=== PATIENT | male | born 1940 | race Caucasian/White ===

== ENCOUNTER 2017-09-16 17:30 | Observation (INO) | payer MEDICARE ==
--- NOTE | 2017-09-16 17:54 | ED ---
General Adult HPI - General Chief complaint: Chest Pain Stated complaint: chest pain, has Heart Hx Time Seen by Provider: 09/16/17 17:42 Source: patient, family, RN notes reviewed, old records reviewed Mode of arrival: ambulatory Limitations: no limitations - History of Present Illness Initial comments: 77-year-old male presents for evaluation of chest pain. Patient has had 5 hours of anterior sternal chest pain. Patient can point with one finger to the location of the pain. Sharp in nature. Comes every few minutes last only for seconds. Not associated with shortness of breath, no nausea and no diaphoresis. Patient denies exertional chest pain over the past weeks to months. Denies fever or chills. Denies cough or shortness of breath. - Related Data Home Medications Medication Instructions Recorded Confirmed Probenecid/Colchicine 1 tab PO BID 11/14/14 09/16/17 [Probenecid-Colchicine Tabs] metFORMIN HCL 1,000 mg PO BID 11/14/14 09/16/17 Ascorbic Acid [Vitamin C] 500 mg PO DAILY 12/02/15 09/16/17 Aspirin 81 mg PO DAILY 12/02/15 09/16/17 Atenolol [Tenormin] 50 mg PO QAM 12/02/15 09/16/17 Cholecalciferol [Vitamin D3] 1,000 unit PO DAILY 12/02/15 09/16/17 Insulin Detemir [Levemir] 20 unit SQ QAM 12/02/15 09/16/17 Methylsulfonylmethane [MSM] 1,500 mg PO BID 12/02/15 09/16/17 Multivitamins, Thera [Multivitamin] 1 tab PO DAILY 12/02/15 09/16/17 Vitamin E 400 unit PO DAILY 12/02/15 09/16/17 glipiZIDE [Glucotrol] 5 mg PO BID 12/02/15 09/16/17 Previous Rx's Medication Instructions Recorded HYDROcodone/APAP 7.5-325MG [[place] 1 tab PO Q6H PRN #30 tab 11/25/14 7.5-325] Lisinopril [Zestril] 10 mg PO DAILY tab 11/25/14 Pravastatin Sodium [Pravachol] 40 mg PO HS tab 11/25/14 Allergies Allergy/AdvReac Type Severity Reaction Status Date / Time No Known Allergies Allergy Verified 09/16/17 18:48 Review of Systems ROS Statement: Those systems with pertinent positive or pertinent negative responses have been documented in the HPI. ROS Other: All systems not noted in ROS Statement are negative. Past Medical History Past Medical History: Coronary Artery Disease (CAD), Cancer, Diabetes Mellitus, Hyperlipidemia, Hypertension, Osteoarthritis (OA) Additional Past Medical History / Comment(s): gout, hx skin cancer, History of Any Multi-Drug Resistant Organisms: None Reported Past Surgical History: Coronary Bypass/CABG, Heart Catheterization, Orthopedic Surgery Additional Past Surgical History / Comment(s): CABG 2014, ORIF left ankle, hemorrhoidectomy, [place] cataracts, nasal surgery, left carpal tunnel Past Anesthesia/Blood Transfusion Reactions: No Reported Reaction Past Psychological History: No Psychological Hx Reported Smoking Status: Never smoker Past Alcohol Use History: Occasional Past Drug Use History: None Reported - Past Family History Father Family Medical History: Coronary Artery Disease (CAD) Additional Family Medical History / Comment(s): PACEMAKER INSERTION. Mother Family Medical History: No Reported History Additional Family Medical History / Comment(s): AORTIC VALVE REPLACED. Brother(s) Family Medical History: Coronary Artery Disease (CAD) Sister(s) Family Medical History: No Reported History Daughter(s) Family Medical History: No Reported History General Exam Limitations: no limitations General appearance: alert, in no apparent distress Head exam: Present: atraumatic, normocephalic Eye exam: Present: normal appearance, PERRL ENT exam: Present: normal exam Neck exam: Present: normal inspection. Absent: tenderness, meningismus Respiratory exam: Present: normal lung sounds bilaterally. Absent: respiratory distress, wheezes, chest wall tenderness Cardiovascular Exam: Present: regular rate, normal rhythm, systolic murmur GI/Abdominal exam: Present: soft. Absent: distended, tenderness Extremities exam: Present: normal inspection, full ROM, normal capillary refill Back exam: Present: normal inspection. Absent: full ROM Neurological exam: Present: alert, oriented X3, CN II-XII intact. Absent: motor sensory deficit Psychiatric exam: Present: normal affect, normal mood Skin exam: Present: warm, dry, intact. Absent: cyanosis, diaphoretic Course Vital Signs 09/16/17 09/16/17 09/16/17 17:33 18:55 19:56 Temperature 97.6 F Pulse Rate 40 L 61 64 Respiratory 22 16 18 Rate Blood Pressure 138/69 167/81 169/80 O2 Sat by Pulse 99 97 97 Oximetry EKG Findings - EKG Comments: EKG Findings:: EKG shows sinus rhythm with sinus arrhythmia and first-degree AV block there is left anterior fascicular block rate of 66, TX interval 248, QRS duration 92, QTC 439 ST segment elevation or depression Medical Decision Making - Medical Decision Making 77-year-old male presents with atypical chest pain. Patient does have history of CAD status post CABG. EKG is negative for signs of acute ischemia. Chest x- ray shows chronic elevation of the right hemidiaphragm. Laboratory studies White blood cell count 5.1 which is normal, hemoglobin stable 14.1, creatinine 1.34 troponin is negative. Patient will be admitted for serial cardiac enzymes and cardiology consult. - Lab Data Result diagrams: 09/16/17 18:05 09/16/17 18:05 Lab Results 09/16/17 09/16/17 09/16/17 Range/Units 18:05 18:05 18:05 WBC 5.1 (3.8-10.6) k/uL RBC 4.18 L (4.30-5.90) m/uL Hgb 13.1 (13.0-17.5) gm/dL Hct 38.0 L (39.0-53.0) % MCV 90.7 (80.0-100.0) fL MCH 31.4 (25.0-35.0) pg MCHC 34.6 (31.0-37.0) g/dL RDW 13.8 (11.5-15.5) % Plt Count 170 (150-450) k/uL Neutrophils % 49 % Lymphocytes % 43 % Monocytes % 5 % Eosinophils % 1 % Basophils % 1 % Neutrophils # 2.5 (1.3-7.7) k/uL Lymphocytes # 2.2 (1.0-4.8) k/uL Monocytes # 0.2 (0-1.0) k/uL Eosinophils # 0.0 (0-0.7) k/uL Basophils # 0.0 (0-0.2) k/uL PT (9.0-12.0) sec INR (<1.2) APTT (22.0-30.0) sec Sodium 141 (137-145) mmol/L Potassium 4.1 (3.5-5.1) mmol/L Chloride 104 (98-107) mmol/L Carbon Dioxide 26 (22-30) mmol/L Anion Gap 11 mmol/L BUN 17 (9-20) mg/dL Creatinine 1.34 H (0.66-1.25) mg/dL Est GFR (MDRD) Af Amer >60 (>60 ml/min/1.73 sqM) Est GFR (MDRD) Non-Af 52 (>60 ml/min/1.73 sqM) Glucose 94 (74-99) mg/dL Calcium 10.0 (8.4-10.2) mg/dL Magnesium 1.4 L (1.6-2.3) mg/dL Total Bilirubin 0.6 (0.2-1.3) mg/dL AST 27 (17-59) U/L ALT 34 (21-72) U/L Alkaline Phosphatase 55 (38-126) U/L Total Creatine Kinase 65 (55-170) U/L CK-MB (CK-2) 2.0 (0.0-2.4) ng/mL CK-MB (CK-2) Rel Index 3.1 Troponin I 0.012 (0.000-0.034) ng/mL NT-Pro-B Natriuret Pep pg/mL Total Protein 6.6 (6.3-8.2) g/dL Albumin 4.0 (3.5-5.0) g/dL Lipase 138 (23-300) U/L 09/16/17 09/16/17 Range/Units 18:05 18:05 WBC (3.8-10.6) k/uL RBC (4.30-5.90) m/uL Hgb (13.0-17.5) gm/dL Hct (39.0-53.0) % MCV (80.0-100.0) fL MCH (25.0-35.0) pg MCHC (31.0-37.0) g/dL RDW (11.5-15.5) % Plt Count (150-450) k/uL Neutrophils % % Lymphocytes % % Monocytes % % Eosinophils % % Basophils % % Neutrophils # (1.3-7.7) k/uL Lymphocytes # (1.0-4.8) k/uL Monocytes # (0-1.0) k/uL Eosinophils # (0-0.7) k/uL Basophils # (0-0.2) k/uL PT 11.5 (9.0-12.0) sec INR 1.2 H (<1.2) APTT 22.5 (22.0-30.0) sec Sodium (137-145) mmol/L Potassium (3.5-5.1) mmol/L Chloride (98-107) mmol/L Carbon Dioxide (22-30) mmol/L Anion Gap mmol/L BUN (9-20) mg/dL Creatinine (0.66-1.25) mg/dL Est GFR (MDRD) Af Amer (>60 ml/min/1.73 sqM) Est GFR (MDRD) Non-Af (>60 ml/min/1.73 sqM) Glucose (74-99) mg/dL Calcium (8.4-10.2) mg/dL Magnesium (1.6-2.3) mg/dL Total Bilirubin (0.2-1.3) mg/dL AST (17-59) U/L ALT (21-72) U/L Alkaline Phosphatase (38-126) U/L Total Creatine Kinase (55-170) U/L CK-MB (CK-2) (0.0-2.4) ng/mL CK-MB (CK-2) Rel Index Troponin I (0.000-0.034) ng/mL NT-Pro-B Natriuret Pep 708 pg/mL Total Protein (6.3-8.2) g/dL Albumin (3.5-5.0) g/dL Lipase (23-300) U/L Disposition Clinical Impression: Chest pain Disposition: ADMITTED IP TO THIS [facility] Condition: Stable Referrals: Morgan Saez MD [Primary Care Provider] - 1-2 days Decision to Admit Reason: Admit from EC Decision Date: 09/16/17 Decision Time: 20:23
[2017-09-16 18:17] LABS: Basophils % (A) 1 %; Eosinophils % (A) 1 %; HGB 13.1 gm/dL (13.0-17.5); Lymphocytes # (A) 2.2 k/uL (1.0-4.8); Lymphocytes % (A) 43 %; MCH 31.4 pg (25.0-35.0); MCHC 34.6 g/dL (31.0-37.0); MCV 90.7 fL (80.0-100.0); Mean Platelet Volume 7.4; Monocytes # (A) 0.2 k/uL (0-1.0); Monocytes % (A) 5 %; Neutrophils # (A) 2.5 k/uL (1.3-7.7); Neutrophils % (A) 49 %; Platelet Count 170 k/uL (150-450); RBC 4.18 m/uL (4.30-5.90); RDW 13.8 % (11.5-15.5); WBC 5.1 k/uL (3.8-10.6)
--- NOTE | 2017-09-16 18:22 | XR ---
EXAMINATION TYPE: XR chest 2V DATE OF EXAM: 09/16/2017 COMPARISON: 06/30/2017 HISTORY: Chest pain TECHNIQUE: Frontal and lateral views of the chest are obtained. FINDINGS: There is elevated right diaphragm. There is no heart failure. There are sternal wires. The re are chest leads. There is some linear density at the left lung base. There is spurring in the thor acic spine. 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 Mild subseg mental atelectasis and scarring at the lung bases. No heart failure. No change compared to old exam.
[2017-09-16 18:25] LABS: INR 1.2 (<1.2); Partial Thromboplastin Time 22.5 sec (22.0-30.0); Prothrombin Time 11.5 sec (9.0-12.0)
[2017-09-16 18:29] LABS: ALT 34 U/L (21-72); AST 27 U/L (17-59); Alkaline Phosphatase 55 U/L (38-126); Anion Gap 11 mmol/L; Blood Urea Nitrogen 17 mg/dL (9-20); Carbon Dioxide 26 mmol/L (22-30); Chloride 104 mmol/L (98-107); Glucose 94 mg/dL (74-99); Lipase 138 U/L (23-300); Potassium 4.1 mmol/L (3.5-5.1); Sodium 141 mmol/L (137-145); Total Bilirubin 0.6 mg/dL (0.2-1.3); Total Protein 6.6 g/dL (6.3-8.2)
[2017-09-16 18:51] LABS: Troponin I 0.012 ng/mL (0.000-0.034)
[2017-09-16] MEDS ORDERED: MAGNESIUM SULFATE-D5W PMX 1 GM in DEXTROSE/WATER 1 100ML.BAG IVPB ONE (19:20)
[2017-09-16] MEDS ORDERED: ASPIRIN 325 MG TAB PO STA (19:21)
[2017-09-16] MEDS ORDERED: NALOXONE 0.4 MG/ML 1 ML VIAL IV PRN (20:17)
[2017-09-16] MEDS ORDERED: HYDROcodone/APAP 5-325MG 1 EACH TAB PO PRN (20:17)
[2017-09-16] MEDS ORDERED: ACETAMINOPHEN TAB 325 MG TAB PO PRN (20:17)
[2017-09-16] MEDS ORDERED: PRAVASTATIN SODIUM 40 MG TAB PO SCH (21:00)
[2017-09-16 23:38] VITALS: RESP 16
[2017-09-17 01:14] LABS: Creatine Kinase 54 U/L (55-170)
[2017-09-17 01:27] LABS: Creatine Kinase MB 1.7 ng/mL (0.0-2.4); Troponin I <0.012 ng/mL (0.000-0.034)
[2017-09-17 06:51] LABS: Basophils % (A) 1 %; Eosinophils % (A) 1 %; HCT 37.9 % (39.0-53.0); HGB 12.7 gm/dL (13.0-17.5); Lymphocytes # (A) 1.8 k/uL (1.0-4.8); Lymphocytes % (A) 48 %; MCH 30.9 pg (25.0-35.0); MCHC 33.5 g/dL (31.0-37.0); MCV 92.2 fL (80.0-100.0); Mean Platelet Volume 7.3; Monocytes # (A) 0.2 k/uL (0-1.0); Monocytes % (A) 5 %; Neutrophils # (A) 1.7 k/uL (1.3-7.7); Neutrophils % (A) 44 %; Platelet Count 150 k/uL (150-450); RBC 4.11 m/uL (4.30-5.90); RDW 13.8 % (11.5-15.5); WBC 3.8 k/uL (3.8-10.6)
[2017-09-17 07:05] LABS: ALT 35 U/L (21-72); AST 22 U/L (17-59); Albumin 3.6 g/dL (3.5-5.0); Alkaline Phosphatase 55 U/L (38-126); Anion Gap 9 mmol/L; Blood Urea Nitrogen 16 mg/dL (9-20); Carbon Dioxide 31 mmol/L (22-30); Chloride 103 mmol/L (98-107); Creatine Kinase 49 U/L (55-170); Glucose 149 mg/dL (74-99); Potassium 4.5 mmol/L (3.5-5.1); Sodium 143 mmol/L (137-145); Total Bilirubin 0.6 mg/dL (0.2-1.3); Total Protein 6.1 g/dL (6.3-8.2)
[2017-09-17 07:17] LABS: Creatine Kinase MB 1.7 ng/mL (0.0-2.4); Troponin I <0.012 ng/mL (0.000-0.034)
[2017-09-17 08:38] VITALS: BP 190/86
[2017-09-17] MEDS ORDERED: LISINOPRIL 10 MG TAB PO SCH (09:00)
[2017-09-17] MEDS ORDERED: ATENOLOL 50 MG TAB PO SCH (09:00)
[2017-09-17] MEDS ORDERED: ASPIRIN 81 MG PO SCH (09:00)
[2017-09-17] MEDS ORDERED: INSULIN DETEMIR 100 UNIT/ML 10 ML VIAL SQ SCH (09:00)
[2017-09-17] MEDS ORDERED: LISINOPRIL 20 MG TAB PO SCH ×2 (10:36→11:45)
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
--- NOTE | 2017-09-17 10:58 | CONS ---
CONSULTATION Reynaldo Jo is a 77-year-old, male patient of Dr. Martinez. He saw Dr. Mark in early 2015, has not seen him since. He came in complaining of discomfort in the chest. This is a very localized pain at the right costochondral junction. No tenderness there and did not respond taking an aspirin or TUMS. He has no more pain now. There was no radiation of this pain. The pain is fairly atypical for angina. PAST HISTORY: Coronary artery disease, coronary artery bypass grafting in 2014. He also has a history of diabetes, history of gout and hypertension. ALLERGIES: No known drug allergies. Medication list was reviewed. It is documented in the chart. He is on atenolol 50 mg daily and his 12-lead ECG shows sinus bradycardia with a mildly prolonged WI interval. PAST SURGERIES: Coronary artery bypass graft in 2014, ankle repaired, hemorrhoidectomy, bilateral cataract surgery, carpal tunnel surgery. SOCIAL HISTORY: He is a never smoker. REVIEW OF SYSTEMS: No fever, chills, or rigors. No cough or expectoration. No nausea, vomiting, diarrhea, hematuria, dysuria, no strokes, seizures, no skin lesions or musculoskeletal complaints. PHYSICAL EXAMINATION: His blood pressure is 190/86 mmHg, pulse rate in the 90s. Head and neck examination is normal. He is afebrile. Heart sounds S1-S2 are normal. No murmurs or gallops. No rubs. Extremities are warm. No edema. IMPRESSION: 1. Atypical chest discomfort with normal cardiac enzymes x3. 2. Coronary artery disease. 3. Coronary artery bypass grafting. 4. Chronic kidney disease stage 3. 5. Uncontrolled hypertension. SUGGEST: Increase lisinopril to 20 mg p.o. daily and reduce atenolol to 25 mg p.o. daily. Maximize antihypertensive therapy. A 2D echo and Doppler study today and outpatient stress testing and follow up with Dr. Mark a week after discharge. MMODL / IJN: [id number] /
[2017-09-17] MEDS ORDERED: ATENOLOL 25 MG TAB PO SCH (11:00)
[2017-09-17 13:01] VITALS: PULSE 66; TEMP 97.5
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
--- NOTE | 2017-09-19 14:33 | ECHOF ---
Referral Reason:cad, cp , htn MEASUREMENTS -------- HEIGHT: 172.7 cm WEIGHT: 88.0 kg BP: 190/86 IVSd: 1.4 cm (0.6 - 1.1) LVIDd: 5.0 cm (3.9 - 5.3) LVPWd: 1.4 cm (0.6 - 1.1) LAESV Index (A-L): 43.14 ml/m Ao Diam: 3.5 cm (2.0 - 3.7) LA Diam: 4.2 cm (2.7 - 3.8) AV Cusp: 2.0 cm (1.5 - 2.6) MV E Nathaniel: 0.69 m/s MV DecT: 191 ms MV A Nathaniel: 0.63 m/s MV E/A Ratio: 1.10 RAP: 5.00 mmHg RVSP: 7.92 mmHg FINDINGS -------- Resting bradycardia (HR<60bpm). This was a technically difficult study with suboptimal views. The left ventricular size is normal. There is moderate concentric left ventricular hypertrophy. O verall left ventricular systolic function is normal with, an EF between 55 - 60 %. The RV was not well visualized. LA is severely dilated >40 ml/m2 The right atrium is normal in size. 3 ml of Lumason was utilized for enhancement of images. Aortic valve is trileaflet and is mildly thickened. There is no evidence of aortic regurgitation. There is no evidence of aortic stenosis. The mitral valve leaflets are mildly thickened. There is trace to mild mitral regurgitation. Trace tricuspid regurgitation present. Right ventricular systolic pressure is normal at < 35 mmHg. There is no evidence of pulmonary hypertension. Trace/mild (physiologic) pulmonic regurgitation. The aortic root size is normal. IVC Not well visulized. The pericardium is normal. There is no pericardial effusion. CONCLUSIONS -------- 1. Resting bradycardia (HR<60bpm). 2. This was a technically difficult study with suboptimal views. 3. The left ventricular size is normal. 4. There is moderate concentric left ventricular hypertrophy. 5. Overall left ventricular systolic function is normal with, an EF between 55 - 60 %. 6. The RV was not well visualized. 7. LA is severely dilated >40 ml/m2 8. 3 ml of Lumason was utilized for enhancement of images. 9. Aortic valve is trileaflet and is mildly thickened. 10. The mitral valve leaflets are mildly thickened. 11. There is trace to mild mitral regurgitation. 12. Trace tricuspid regurgitation present. 13. Right ventricular systolic pressure is normal at < 35 mmHg. 14. There is no evidence of pulmonary hypertension. 15. Trace/mild (physiologic) pulmonic regurgitation. 16. The aortic root size is normal. 17. IVC Not well visulized. 18. There is no pericardial effusion. MORNING SHOW [employer] PRODUCER: Jason Montalvo RDCS
== END 2017-09-17 15:41 | disposition home or self-care (01) ==
LOC: EC 17:30 → 3OBS 20:21
PROVIDERS: ADMIT Internal Medicine; ATTEND Internal Medicine
DX: R07.2 Precordial pain (principal); I25.5 Ischemic cardiomyopathy; I13.10 Hypertensive heart and chronic kidney disease without heart failure, with stage 1 through stage 4 chronic kidney disease, or unspecified chronic kidney disease; N18.3 Chronic kidney disease, stage 3 (moderate); E11.22 Type 2 diabetes mellitus with diabetic chronic kidney disease; E11.65 Type 2 diabetes mellitus with hyperglycemia; I25.10 Atherosclerotic heart disease of native coronary artery without angina pectoris; I44.0 Atrioventricular block, first degree; R00.1 Bradycardia, unspecified; T44.7X5A Adverse effect of beta-adrenoreceptor antagonists, initial encounter; G56.02 Carpal tunnel syndrome, left upper limb; Z95.1 Presence of aortocoronary bypass graft; M10.9 Gout, unspecified; E78.5 Hyperlipidemia, unspecified; M19.90 Unspecified osteoarthritis, unspecified site; Z79.82 Long term (current) use of aspirin; Z79.4 Long term (current) use of insulin; Z85.828 Personal history of other malignant neoplasm of skin; Z82.49 Family history of ischemic heart disease and other diseases of the circulatory system
CPT/HCPCS: 96365 ×2; 99285 ×2; 36415; 93005; 83880; 80053 ×2; 82550 ×2; 82553 ×2; 83690; 83735; 84484 ×2; 85025 ×2; 85610; 85730; 71046; G0378 ×2; C8929; J3475; Q9950; 93306

== ENCOUNTER → 2017-09-28 | Outpatient (CLI) | payer MEDICARE ==
--- NOTE | 2017-09-28 11:40 | EST ---
EXERCISE STRESS DATE OF SERVICE: 09/28/2017 AGE: 77 SEX: M HT: 68" WT: 194 PROTOCOL: Eliezer Cardiolite Stress Test STAGE: I DURATION OF EXERCISE: 4:00 HEART RATE REST: 70 BLOOD PRESSURE REST: 139/73 MAXIMUM HEART RATE ACHIEVED: 132 MAXIMUM BLOOD PRESSURE: 235/111 85% MPHR: 122 100% MPHR: 143 METS: 5.4 INDICATIONS: Chest pain. CLINICAL INFORMATION: STRESS DATA: Pretesting physical examination showed a heart rate of 70, pressure is 129/73 mmHg. Baseline EKG showed sinus rhythm. The patient exercised on the treadmill according to Eliezer protocol for a total of 4 minutes and achieved 5.4 METS. Max heart rate was 132, which is about 92% of maximum predicted heart rate. Maximum blood pressure was 235/111 mmHg. Clinically, the patient did not have any chest pain, he did have some shortness of breath. The EKG did not show any significant ST or T-wave abnormalities, but the patient developed frequent premature ventricular contractions. CONCLUSION: 1. Average exercise capacity. 2. Frequent premature ventricular contractions in response to exercise. 3. Please follow up on the Cardiolite portion on a separate report from Radiology Department. MMODL / IJN: [id number] /
--- NOTE | 2017-09-28 13:03 | NM ---
EXAMINATION TYPE: NM stress cardiolite complete DATE OF EXAM: 09/28/2017 COMPARISON: NONE HISTORY: Angina pectoris TECHNIQUE: After the intravenous administration of 10.5 mCi Tc 99m Sestamibi - Rest images obtained 45 minutes post injection. The patient exercised using a ASHLEY protocol and 1 minute prior to peak exercise was injected with 27 mCi Tc 99m Sestamibi - Stress images obtained 10 minutes post injection . FINDINGS: Targeted heart rate was achieved during performance of the study. Review of stress and rest SPECT amaris ges demonstrates decreased pharmaceutical uptake along the inferolateral left ventricle on stress and rest images. There is some decreased uptake on stress images as compared to rest images along the an terolateral left ventricle towards the base of the heart. Gated analysis shows normal wall motion wi th an estimated left ventricular ejection fraction of 44 %. IMPRESSION: Findings compatible with prior infarct. Suspect some leo-infarct stress-induced left ventricular vickey cardial ischemia as described. Abnormal low myocardial ejection fraction, consider echocardiographic correlation. A Yellow message has been communicated to Morgan Saez MD via the [employer] system on 09/28/2017 1:00 PM, Message ID [phone].
== END | disposition home or self-care (01) ==
LOC: RADNMMAIN 07:57
PROVIDERS: ATTEND Family Medicine
DX: I49.3 Ventricular premature depolarization (principal); I20.9 Angina pectoris, unspecified
CPT/HCPCS: 93017; 78452; A9500

== ENCOUNTER 2017-11-04 09:08 | Day surgery (SDC) | payer MEDICARE ==
[2017-11-02 15:57] VITALS: BMI 29.3
[~2017-11-04 09:08] MED LIST: ALPRAZolam 0.25 MG TAB PO PRN; ALPRAZolam 0.5 MG TAB PO PRN; ASPIRIN 325 MG TAB PO STA; ATORVASTATIN 80 MG TAB PO STA; NITROGLYCERIN SL TABS 0.4 MG TAB SUBLINGUAL PRN; SODIUM CHLORIDE 0.9% 1,000 ML in EMPTY BAG 1 BAG IV ONE
[2017-11-04 09:55] VITALS: PULSE 58; RESP 20; TEMP 98.3
[2017-11-04 09:57] LABS: Glucose,Whole Blood 170 mg/dL (75-99)
[2017-11-04] MEDS ORDERED: fentaNYL (PF) 50 MCG/ML 2 ML AMP IV ONE (10:45)
[2017-11-04] MEDS ORDERED: MIDAZOLAM 2 MG/2 ML VIAL IV ONE (10:45)
[2017-11-04] MEDS ORDERED: LIDOCAINE 2% INJ 20 MG/ML SQ ONE (10:47)
[2017-11-04] MEDS ORDERED: SODIUM CHLORIDE 0.9% 1,000 ML IV ONE (10:56)
[2017-11-04 11:06] LABS: Basophils % (A) 1 %; Eosinophils % (A) 1 %; HCT 33.4 % (39.0-53.0); HGB 11.6 gm/dL (13.0-17.5); Lymphocytes # (A) 1.8 k/uL (1.0-4.8); Lymphocytes % (A) 33 %; MCH 30.9 pg (25.0-35.0); MCHC 34.6 g/dL (31.0-37.0); MCV 89.2 fL (80.0-100.0); Mean Platelet Volume 8.4; Monocytes # (A) 0.3 k/uL (0-1.0); Monocytes % (A) 5 %; Neutrophils # (A) 3.3 k/uL (1.3-7.7); Neutrophils % (A) 59 %; Platelet Count 155 k/uL (150-450); RBC 3.75 m/uL (4.30-5.90); RDW 13.8 % (11.5-15.5); WBC 5.6 k/uL (3.8-10.6)
[2017-11-04] MEDS ORDERED: IODIXANOL 320 MG/ML 100 ML INTRAARTER ONE (11:15)
[2017-11-04] MEDS ORDERED: RX INFO: IV CONTRAST WAS GIVEN 1 EACH MISC MISCELLANE PRN (11:19)
[2017-11-04] MEDS ORDERED: SODIUM CHLORIDE 0.9% 1,000 ML IV SCH (11:30)
[2017-11-04 11:33] LABS: Potassium 4.1 mmol/L (3.5-5.1)
--- NOTE | 2017-11-04 11:38 | P.PCN ---
Date of Procedure: 11/04/17 Preoperative Diagnosis: Stable angina and positive stress test Postoperative Diagnosis: Severe triple-vessel disease with total occlusion of the graft to the diagonal. Patent graft to the LAD distal circumflex and also PDA of the right Procedure(s) Performed: Left heart catheterization without left ventriculography Description of Procedure: HISTORY: This is a 77-year-old gentleman with history of ischemic or disease with a previous bypass surgery with the MACHUCA graft to the LAD, vein graft to the diagonal, vein graft to the OM branch and also vein graft to the RCA. Patient has been having anginal pains and a stress test showed evidence of reversible ischemia. Patient is advised to have cardiac catheterization for definitive diagnosis. CONSENT:I have discussed the risks, benefits and alternative therapies for the above-mentioned procedure and for both sedation/analgesia as well as necessary blood product administration, if indicated, as they pertain to this patient. The patient has indicated understanding and acceptance of the risks and procedures discussed. PROCEDURE: Patient was brought to the lab in a fasting state. Patient was given some IV sedation. The right groin is infiltrated with lidocaine and right femoral artery was entered using Seldinger technique. A 6-Romanian catheter was left in place and selective coronary arteriography was performed. Patient tolerated the procedure well. Manual compression was applied for hemostasis. No immediate complications were noted and patient was transferred to [facility] in a stable condition Conscious Sedation: Versed 1mg Fentanyl 50 g Duration 27minutes HEMODYNAMICS: The aortic pressure is about 130/70. Left ankle end-diastolic pressure is about 16-20. There was no gradient across the aortic valve SELECTIVE CORONARY ARTERIOGRAPHY: LEFT MAIN: This is a normal length with about 95% distal stenosis before bifurcation to LAD and circumflex. The lesion extends both into the LAD and circumflex. THE LEFT ANTERIOR DESCENDING CORONARY ARTERY: This is totally occluded after diagonal branch. The diagonal branches has long 60-70% stenosis proximally. THE LEFT CIRCUMFLEX AND IS CORONARY ARTERY: There is about 95% stenosis of the ostium. Total occluded after OM branch THE RIGHT CORONARY ARTERY: Totally occluded in the midportion after acute marginal branch and acute marginal branch has about 70-80 % ostial stenosis. THE MACHUCA GRAFT TO THE LAD: This is patent throat its length and also distal anastomosis. The LAD beyond the anastomosis appears to be free of occlusive disease. The vein graft to the RIGHT CORONARY ARTERY: This is patent throat its length and also at the proximal and distal anastomosis. The distal RCA is free of any significant occlusive disease. THE VEIN GRAFT TO THE CIRCUMFLEX: This is patent throat its length and also in the proximal and distal anastomotic sites. The distal circumflex is free of occlusive disease LEFT VENTRICULOGRAPHY:. Not performed FINAL IMPRESSION: Severe [place] coronary artery disease with significant lesion involving the left main at the bifurcation into LAD and circumflex. There is also significant lesion involving the proximal portion of the diagonal. The vein graft to diagonal is totally occluded. The MACHUCA graft to LAD, the vein graft to circumflex and the vein graft to the RCA is patent. The [place] LAD, circumflex and RCA and total occluded PLAN: Maximum medical therapy. Consideration to stenting of the left main and proximal diagonal to be constricted. Films were reviewed by Dr. Wang. Patient will have staged procedure PROGNOSIS: Guarded
[2017-11-04 16:12] VITALS: BP 120/60
[2017-11-04] MEDS ORDERED: INSULIN ASPART 100 UNIT/ML 1 ML 10 ML VIAL SQ ONE (16:55)
[2017-11-04 17:15] LABS: Glucose,Whole Blood 224 mg/dL (75-99)
== END 2017-11-04 18:21 | disposition home or self-care (01) ==
LOC: CATHCVL 09:08
PROVIDERS: ATTEND Internal Medicine Cardiovascular Disease
DX: I25.118 Atherosclerotic heart disease of native coronary artery with other forms of angina pectoris (principal); I25.708 Atherosclerosis of coronary artery bypass graft(s), unspecified, with other forms of angina pectoris; I25.82 Chronic total occlusion of coronary artery; R94.39 Abnormal result of other cardiovascular function study; I10 Essential (primary) hypertension; E78.00 Pure hypercholesterolemia, unspecified; E11.9 Type 2 diabetes mellitus without complications; Z95.1 Presence of aortocoronary bypass graft; Z82.49 Family history of ischemic heart disease and other diseases of the circulatory system; Z79.84 Long term (current) use of oral hypoglycemic drugs; Z79.82 Long term (current) use of aspirin; Z79.4 Long term (current) use of insulin; Z79.899 Other long term (current) drug therapy
CPT/HCPCS: 93459; 80048; 85025; C1894; C1769; J2001; J2250; Q9967; J3010

== ENCOUNTER → 2017-11-14 | Outpatient (CLI) | payer MEDICARE ==
[2017-11-14 13:22] LABS: HCT 37.1 % (39.0-53.0); HGB 12.6 gm/dL (13.0-17.5); MCH 30.8 pg (25.0-35.0); MCV 90.7 fL (80.0-100.0); Mean Platelet Volume 8.8; Platelet Count 146 k/uL (150-450); RBC 4.09 m/uL (4.30-5.90); RDW 13.8 % (11.5-15.5); WBC 5.8 k/uL (3.8-10.6)
[2017-11-14 13:47] LABS: Potassium 4.6 mmol/L (3.5-5.1)
== END | disposition home or self-care (01) ==
LOC: LABPAT 13:04
PROVIDERS: ATTEND Internal Medicine Interventional Cardiology
DX: Z01.812 Encounter for preprocedural laboratory examination (principal); I25.10 Atherosclerotic heart disease of native coronary artery without angina pectoris
CPT/HCPCS: 36415; 80051; 82565; 84520; 85027

== ENCOUNTER 2017-11-15 05:43 | Day surgery (SDC) | payer MEDICARE ==
[2017-11-10 14:25] VITALS: BMI 29.5
[2017-11-15] MEDS ORDERED: ALPRAZolam 0.25 MG TAB PO PRN (05:59)
[2017-11-15] MEDS ORDERED: ALPRAZolam 0.5 MG TAB PO PRN (05:59)
[2017-11-15] MEDS ORDERED: ASPIRIN 325 MG TAB PO STA (05:59)
[2017-11-15] MEDS ORDERED: SODIUM CHLORIDE 0.9% 1,000 ML in EMPTY BAG 1 BAG IV ONE (05:59)
[2017-11-15] MEDS ORDERED: NITROGLYCERIN SL TABS 0.4 MG TAB SUBLINGUAL PRN ×2 (05:59→08:53)
[2017-11-15] MEDS ORDERED: fentaNYL (PF) 50 MCG/ML 2 ML AMP ONE (07:18)
[2017-11-15] MEDS ORDERED: LIDOCAINE 2% INJ 20 MG/ML (20 ML MDV) ONE (07:18)
[2017-11-15] MEDS ORDERED: MIDAZOLAM 2 MG/2 ML VIAL ONE (07:18)
[2017-11-15] MEDS ORDERED: fentaNYL (PF) 50 MCG/ML 2 ML AMP IVP ONE (07:33)
[2017-11-15] MEDS ORDERED: LIDOCAINE 2% INJ 20 MG/ML SQ ONE (07:38)
[2017-11-15] MEDS ORDERED: CLOPIDOGREL 75 MG TAB ONE (07:41)
[2017-11-15] MEDS ORDERED: BIVALIRUDIN BOLUS 250 MG/50 ML IV ONE (07:42)
[2017-11-15] MEDS ORDERED: BIVALIRUDIN 250 MG in SODIUM CHLORIDE 0.9% 50 ML IV ONE (07:43)
[2017-11-15] MEDS ORDERED: CLOPIDOGREL 75 MG TAB PO ONE (07:45)
[2017-11-15] MEDS ORDERED: NITROGLYCERIN 1000MCG/10ML SYRINGE INTRACORON ONE (08:11)
[2017-11-15] MEDS ORDERED: IODIXANOL 320 MG/ML 100 ML INTRAARTER ONE ×2 (08:16→08:37)
[2017-11-15 08:49] LABS: Glucose,Whole Blood 148 mg/dL (75-99)
[2017-11-15] MEDS ORDERED: RX INFO: IV CONTRAST WAS GIVEN 1 EACH MISC MISCELLANE PRN (08:53)
[2017-11-15] MEDS ORDERED: ATROPINE SULFATE 0.1 MG/ML 10ML SYRINGE IV PRN (08:53)
[2017-11-15] MEDS ORDERED: MAG HYDROX/AL HYDROX/SIMETH 30 ML CUP PO PRN (08:53)
[2017-11-15] MEDS ORDERED: ZOLPIDEM 5 MG TAB PO PRN (08:53)
[2017-11-15] MEDS ORDERED: HYDROcodone/APAP 7.5-325MG 1 EACH TAB PO PRN (08:55)
[2017-11-15] MEDS ORDERED: METHYLSULFONYLMETHANE 1500 MG PO SCH (09:00)
[2017-11-15] MEDS ORDERED: COLCHICIN-PROBENECID 0.5-500MG 1 EACH TAB PO SCH (09:00)
[2017-11-15] MEDS ORDERED: SODIUM CHLORIDE 0.9% 1,000 ML IV SCH (09:00)
--- NOTE | 2017-11-15 09:50 | PTCA ---
PERCUTANEOUSTRANS CORORONARY ANGIOGRAPHY Mr. Jo is a 77-year-old male with known history of coronary artery disease status post coronary artery bypass grafting, who has been followed by Dr. Mark and recently presented with symptoms of chest discomfort and reversible anterolateral wall defect. Underwent cardiac catheterization, was found to have occluded saphenous vein graft to diagonal branch with severe disease in the left main, proximal LAD and diagonal branch. In view of that, recommendation was made regarding angioplasty and stenting. The procedure as well as the risks and complications were discussed with the patient who is in full understanding and agreement. 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 Using Xylocaine anesthesia in the Seldinger technique, a 6-Macedonian sheath was introduced in the left femoral artery. Left coronary angiography performed using 6-Macedonian EBU 3.75 guiding catheter. After cannulating the left main, a 0.014 balanced medium J-wire was advanced across the lesion and positioned distally. Then, a FineCross catheter was introduced and the wire was exchanged to a ViperWire. After exchanging the wire and removing the FineCross, a diamondback 360 coronary arthrectomy device was advanced and a total of 3 rounds were done. Following that, the arthrectomy device was removed and using the FineCross of the ViperWire was exchanged again to the 0.014 balanced medium weight J- wire. Following that, a 2.5 x 12 mm Trek balloon was advanced and multiple inflations, maximum 10 atmospheres were done. Following that, the balloon was removed and a 2.75 x 28 mm Xience Alpine stent was deployed, postdilated at 16 atmospheres. Following that, the balloon was removed and a 3.25 x 12 mm NC Trek balloon was advanced in the left main and inflation at 14 atmospheres was done. Following that, the balloon was removed and a 4.0 x 12 mm NC Trek balloon was advanced in the same segment and an inflation at 14 am atmospheres was done. After the last inflation, after appropriate wait, the balloon and the guidewire were withdrawn back in the guiding catheter. Images were obtained, repeated and those images reveal stable successful stenting. At that point, the guiding catheter, the balloon and the guidewire were removed. The sheath was removed. Hemostasis was obtained with deployment of Angio-Seal. There was no immediate complication. Patient is returned to his room in stable condition. Of note, patient had chest discomfort and EKG changes with inflation that resolved at the end of the procedure. He received Angiomax per protocol as well as oral loading dose of clopidogrel. RESULTS: Successful stenting of the distal left main with reduction of stenosis from 95% to 5% with stenting of the proximal left anterior descending artery and diagonal branch. RECOMMENDATION: Patient will be continued on aspirin, Plavix, beta blockers, ERYN-I and statin. The importance of dual antiplatelet treatment were discussed with the patient and his family and they are in full understanding and agreement. Duration of procedure: 63 minutes. ANN / CORYN: [id number] / MELISSA
--- NOTE | 2017-11-15 09:53 | LTR ---
November 15, 2017 Re: Reynaldo Jo Dear Dr. Saez: I had the opportunity to perform coronary angioplasty and stenting on Mr. Jo at [facility] on the 15 of November and a full copy of the procedure note will be forwarded to you. In brief, he underwent successful stenting of his distal left main, proximal LAD and diagonal branch using a drug eluting stent. I am hopeful that this procedure will stabilized his status. Thank you again for allowing me the opportunity to participate in his care. Please feel free to call for any questions. Sincerely yours, Maury Wang MD MMFRANCAL / CORYN: [id number] /
[2017-11-15] MEDS: ISOSORBIDE MONONITRATE ER 30 MG TAB.ER.24H PO SCH (11:33)
[2017-11-15] MEDS: ATENOLOL 25 MG TAB PO SCH (11:33)
[2017-11-15] MEDS: COLCHICIN-PROBENECID 0.5-500MG 1 EACH TAB PO SCH ×2 (11:33→20:19)
[2017-11-15] MEDS: LISINOPRIL 10 MG TAB PO SCH (11:33)
[2017-11-15] MEDS: INSULIN DETEMIR 100 UNIT/ML 10 ML VIAL SQ SCH (11:42)
[2017-11-15] MEDS ORDERED: VITAMIN E (DL,TOCOPHERYL ACET) 400 UNIT CAP PO SCH (12:00)
[2017-11-15] MEDS ORDERED: ASCORBIC ACID 500 MG TAB PO SCH (12:00)
[2017-11-15] MEDS ORDERED: MULTIVITAMINS, THERA 1 EACH TAB PO SCH (12:00)
[2017-11-15] MEDS: glipiZIDE 5 MG TAB PO SCH (12:17)
[2017-11-15 12:19] LABS: Glucose,Whole Blood 226 mg/dL (75-99)
[2017-11-15 16:49] LABS: Glucose,Whole Blood 134 mg/dL (75-99)
[2017-11-15] MEDS ORDERED: amLODIPine 2.5 MG TAB PO SCH (21:00)
[2017-11-15] MEDS ORDERED: ATORVASTATIN 80 MG TAB PO SCH (21:00)
[2017-11-15 21:12] LABS: Glucose,Whole Blood 171 mg/dL (75-99)
[2017-11-15 23:51] VITALS: RESP 16
[2017-11-16 04:44] VITALS: BP 147/71; PULSE 67; TEMP 97.7
[2017-11-16 06:41] LABS: Glucose,Whole Blood 120 mg/dL (75-99)
[2017-11-16 07:01] LABS: Calcium 9.4 mg/dL (8.4-10.2)
[2017-11-16] MEDS: ATENOLOL 25 MG TAB PO SCH (07:59)
[2017-11-16] MEDS: ISOSORBIDE MONONITRATE ER 30 MG TAB.ER.24H PO SCH (07:59)
[2017-11-16] MEDS: LISINOPRIL 10 MG TAB PO SCH (07:59)
[2017-11-16] MEDS: glipiZIDE 5 MG TAB PO SCH (08:00)
[2017-11-16] MEDS: COLCHICIN-PROBENECID 0.5-500MG 1 EACH TAB PO SCH (08:01)
[2017-11-16] MEDS: INSULIN DETEMIR 100 UNIT/ML 10 ML VIAL SQ SCH (08:04)
--- NOTE | 2017-11-16 08:05 | PN ---
PROGRESS NOTE Mr. Jo is a 77-year-old male with known history of coronary artery disease, status post coronary artery bypass grafting, who presented with symptoms of chest discomfort and dyspnea, was evaluated by Dr. Mark, underwent cardiac catheterization, was found to have critical stenosis involving the left main and the LAD into the diagonal branch with known occluded graft to the diagonal branch. He was admitted electively to undergo a angioplasty and stenting of that segment. The patient underwent atherectomy and stenting of the left main, LAD and diagonal branch with good results. He is doing well this morning. He is denying any chest pain. His breathing has been stable. He denies any dizziness, palpitation. No syncope. He has been ambulating without difficulty. He continued be on aspirin once a day, Plavix 75 mg daily, amlodipine 2.5 mg daily, atenolol 25 mg daily, Lipitor 80 mg daily, colchicine, glipizide 5 mg daily, insulin, isosorbide mononitrate 30 mg daily, Zestril 10 mg daily. PHYSICAL EXAMINATION: Blood pressure 140/70 with the heart rate in the 60s. LUNGS: Clear. HEART: Regular rate and rhythm. S1, S2. No S3 with a systolic murmur. No diastolic murmur. No rub. ABDOMEN: Soft and nontender. EXTREMITIES: No edema. LEFT GROIN: No hematoma. LAB DATA: Lab data revealed BUN and creatinine 20 and 1.2, potassium 4.0. EKG shows no acute changes. IMPRESSION: 1. Status post stenting of the left main, left anterior descending artery, and diagonal branch. 2. History of coronary artery bypass grafting. 3. Hypertension. 4. Hyperlipidemia. 5. Diabetes mellitus. RECOMMENDATION: Patient will be discharged home today and followed as an outpatient by Dr. Mark. MMODL / IJN: [id number] /
[2017-11-16] MEDS ORDERED: ASPIRIN 81 MG PO SCH (09:00)
[2017-11-16] MEDS ORDERED: CLOPIDOGREL 75 MG TAB PO SCH (09:00)
== END 2017-11-16 09:55 | disposition home or self-care (01) ==
LOC: CATHCVL 05:43 → 6SEL 08:38 → CATHCVL 11-16 09:55
PROVIDERS: ATTEND Internal Medicine Interventional Cardiology
DX: I25.810 Atherosclerosis of coronary artery bypass graft(s) without angina pectoris (principal); I25.82 Chronic total occlusion of coronary artery; I25.10 Atherosclerotic heart disease of native coronary artery without angina pectoris; I44.0 Atrioventricular block, first degree; Z95.1 Presence of aortocoronary bypass graft; I10 Essential (primary) hypertension; E78.00 Pure hypercholesterolemia, unspecified; E11.9 Type 2 diabetes mellitus without complications; Z82.49 Family history of ischemic heart disease and other diseases of the circulatory system; Z79.84 Long term (current) use of oral hypoglycemic drugs; Z79.82 Long term (current) use of aspirin; Z79.4 Long term (current) use of insulin; Z79.899 Other long term (current) drug therapy
CPT/HCPCS: 85347; 80048; C9602; C1769 ×4; C1760; C1887 ×3; C1725 ×3; C1894; C1874; C1714; J2001; Q9967; J3010; J0583

== ENCOUNTER → 2017-11-28 | Outpatient (CLI) | payer MEDICARE ==
[2017-11-28 18:05] LABS: Calcium 9.9 mg/dL (8.4-10.2); Potassium 4.7 mmol/L (3.5-5.1)
--- NOTE | 2017-11-28 18:33 | XR ---
EXAMINATION TYPE: XR chest 2V DATE OF EXAM: 11/28/2017 COMPARISON: 09/16/2017 HISTORY: Short of breath TECHNIQUE: Frontal and lateral views of the chest are obtained. FINDINGS: There is some elevation of the right diaphragm and linear density at the right lung base. There is no heart failure. The left lung is clear. There are sternal wires. Bony thorax is intact. IMPRESSION: There is mild chronic elevation of the right diaphragm consistent with some paralysis an d atelectasis. No change.
== END | disposition home or self-care (01) ==
LOC: LABWHC1 17:21
PROVIDERS: ATTEND Internal Medicine Cardiovascular Disease
DX: J98.6 Disorders of diaphragm (principal); I10 Essential (primary) hypertension; I25.10 Atherosclerotic heart disease of native coronary artery without angina pectoris
CPT/HCPCS: 36415; 71046; 80048; 83880

== ENCOUNTER 2018-01-03 11:21 | Inpatient (IN) | payer MEDICARE ==
[2018-01-03] MEDS ORDERED: ASPIRIN 81 MG PO STA (11:40)
[2018-01-03] MEDS ORDERED: NITROGLYCERIN OINT 1 INCH/GM PACKET TOPICAL STA (11:40)
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
[2018-01-03 11:56] LABS: Basophils % (A) 0 %; Eosinophils # (A) 0.1 k/uL (0-0.7); Eosinophils % (A) 1 %; HCT 34.5 % (39.0-53.0); HGB 11.7 gm/dL (13.0-17.5); Lymphocytes # (A) 1.5 k/uL (1.0-4.8); Lymphocytes % (A) 31 %; MCH 30.7 pg (25.0-35.0); MCHC 33.9 g/dL (31.0-37.0); MCV 90.3 fL (80.0-100.0); Monocytes # (A) 0.3 k/uL (0-1.0); Monocytes % (A) 6 %; Neutrophils % (A) 60 %; Platelet Count 151 k/uL (150-450); RBC 3.82 m/uL (4.30-5.90); RDW 14.1 % (11.5-15.5)
[2018-01-03 12:06] LABS: Albumin 3.7 g/dL (3.5-5.0); Calcium 9.5 mg/dL (8.4-10.2); INR 1.2 (<1.2); Magnesium 1.3 mg/dL (1.6-2.3); Partial Thromboplastin Time 22.6 sec (22.0-30.0); Potassium 4.3 mmol/L (3.5-5.1); Prothrombin Time 11.4 sec (9.0-12.0); Total Bilirubin 0.9 mg/dL (0.2-1.3); Total Protein 6.3 g/dL (6.3-8.2)
--- NOTE | 2018-01-03 12:17 | XR ---
EXAMINATION TYPE: XR chest 2V DATE OF EXAM: 01/03/2018 COMPARISON: 11/28/2017 HISTORY: 77-year-old male complaining of chest pressure and shortness of breath, chest pain TECHNIQUE: Frontal and lateral views FINDINGS: Heart borderline enlarged. Similar asymmetric elevation of the right hemidiaphragm. Some strandy atel ectasis in the lower lungs. Median sternotomy wires and post-CABG clips. Aorta and pulmonary vasculat ure within normal limits. No consolidation or pleural effusion. IMPRESSION: Chronic changes without acute cardiopulmonary process. Similar asymmetric elevation of the right dimitri diaphragm.
[2018-01-03 12:30] LABS: Troponin I 0.02 ng/mL (0.000-0.034)
[2018-01-03 12:34] LABS: Creatine Kinase MB 3.3 ng/mL (0.0-2.4)
[2018-01-03] MEDS ORDERED: HEPARIN SODIUM,PORCINE 5,000 UNIT/ML 1 ML VIAL IV ONE (13:07)
[2018-01-03] MEDS ORDERED: NITROGLYCERIN SL TABS 0.4 MG TAB SUBLINGUAL PRN (13:18)
[2018-01-03] MEDS ORDERED: HYDROcodone/APAP 7.5-325MG 1 EACH TAB PO PRN (14:02)
[2018-01-03] MEDS: HEPARIN SODIUM,PORCINE 25,000 UNIT in DEXTROSE 5% IN WATER 500 ML IV SCH ×2 (14:22)
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
[2018-01-03 17:13] LABS: Glucose,Whole Blood 152 mg/dL (75-99)
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
[2018-01-03 18:02] LABS: Creatine Kinase MB 2.9 ng/mL (0.0-2.4); Troponin I 0.021 ng/mL (0.000-0.034)
[2018-01-03] MEDS: INSULIN ASPART 100 UNIT/ML 1 ML 10 ML VIAL SQ SCH ×2 (18:10→23:59)
[2018-01-03] MEDS: NITROGLYCERIN OINT 1 INCH/GM PACKET TOPICAL SCH (18:13)
[2018-01-03] MEDS: BUDESONIDE 0.5 MG/2 ML NEBU INHALATION SCH (19:27)
[2018-01-03 20:35] LABS: Glucose,Whole Blood 104 mg/dL (75-99)
[2018-01-03] MEDS: amLODIPine 2.5 MG TAB PO SCH (21:18)
[2018-01-03] MEDS: PRAVASTATIN SODIUM 40 MG TAB PO SCH (21:18)
[2018-01-03] MEDS: FUROSEMIDE 10 MG/ML 4 ML VIAL IV SCH (21:18)
[2018-01-03] MEDS: COLCHICIN-PROBENECID 0.5-500MG 1 EACH TAB PO SCH (21:18)
[2018-01-03] MEDS: ASPIRIN 81 MG PO SCH (21:18)
[2018-01-04] MEDS: NITROGLYCERIN OINT 1 INCH/GM PACKET TOPICAL SCH ×2 (00:09→05:10)
[2018-01-04 01:05] LABS: Troponin I 0.027 ng/mL (0.000-0.034)
[2018-01-04 01:17] LABS: Creatine Kinase MB 2.9 ng/mL (0.0-2.4)
[2018-01-04 01:55] LABS: Hemoglobin A1C 6.3 % (4.0-6.0)
[2018-01-04 06:58] LABS: Glucose,Whole Blood 115 mg/dL (75-99)
[2018-01-04] MEDS: BUDESONIDE 0.5 MG/2 ML NEBU INHALATION SCH ×2 (07:44→20:33)
[2018-01-04] MEDS: IPRATROPIUM-ALBUTEROL 3 ML NEB INHALATION PRN ×2 (07:44→20:33)
[2018-01-04 08:07] LABS: Cholesterol 114 mg/dL (<200); HDL Cholesterol 56 mg/dL (40-60); LDL Cholesterol,Calculated 45 mg/dL (0-99); Triglycerides 67 mg/dL (<150)
[2018-01-04] MEDS: INSULIN ASPART 100 UNIT/ML 1 ML 10 ML VIAL SQ SCH ×4 (08:51→21:51)
[2018-01-04] MEDS: glipiZIDE 5 MG TAB PO SCH (08:53)
[2018-01-04] MEDS: LISINOPRIL 20 MG TAB PO SCH (08:53)
[2018-01-04] MEDS: FUROSEMIDE 10 MG/ML 4 ML VIAL IV SCH ×2 (08:54→19:59)
[2018-01-04] MEDS: COLCHICIN-PROBENECID 0.5-500MG 1 EACH TAB PO SCH ×2 (08:55→19:59)
[2018-01-04] MEDS: ATENOLOL 25 MG TAB PO SCH (08:55)
[2018-01-04] MEDS ORDERED: ASPIRIN 325 MG TAB PO SCH (09:00)
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
[2018-01-04] MEDS: INSULIN DETEMIR 100 UNIT/ML 10 ML VIAL SQ SCH (10:30)
[2018-01-04] MEDS ORDERED: RX INFO: IV CONTRAST WAS GIVEN 1 EACH MISC MISCELLANE PRN (12:16)
[2018-01-04 12:30] LABS: Glucose,Whole Blood 338 mg/dL (75-99)
[2018-01-04] MEDS: HEPARIN SODIUM,PORCINE 25,000 UNIT in DEXTROSE 5% IN WATER 500 ML IV SCH ×2 (14:17)
--- NOTE | 2018-01-04 14:21 | P.PN ---
Subjective Progress Note Date: 01/04/18 Principal diagnosis: Shortness of breath, substernal chest heaviness under investigation Mr. Jo is a 77-year-old white male patient of Dr. Morgan Saez, presented to the emergency department on 01/03/2018 at 1140 with complaints of sternal heaviness, increasing exertional dyspnea and orthopnea. He reports his symptoms become progressively worse since the placement of his coronary stents on 11/16/2017 to the distal left main, proximal LAD and diagonal branch. Patient has a history of coronary artery bypass grafting 4 years ago. Does not have any history of chronic lung disease, patient is a lifetime nonsmoker. 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 Does not wear oxygen at his baseline. 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 Mark for his "chest congestion ". Patient reports feeling dizzy and lightheaded after being started on diuretics, in the diuretics were discontinued. Patient was supposed to start in the cardiac rehab program, could not participate due to his lightheadedness, and exertional dyspnea. Patient has been experiencing chest heaviness on and of for last several days. Patient reports gasping for air when he is laying down flat. Chest x-ray completed on 01/03/2018 shows elevation of the right hemidiaphragm, previously seen on chest x-ray on 11/28/2017. Strandy atelectasis in the lower lungs, but no consolidation or pleural effusion. 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 Patient reports only occasional cough, no wheezing, no sputum production, no chest wall tenderness, no peripheral swelling. Lab work showed a CBC of 5.0, hemoglobin of 11.7, INR is 1.2, electrolytes were within normal limits, BUN is 15, creatinine is 1.18. CK-MB was 3.3, troponin was negative 1, proBNP was mildly elevated at 2070, liver enzymes were within normal limits. We were asked to see the patient in consultation regarding his exertional dyspnea. Patient denies any fever, chills , sputum production, weight loss. CTA chest from 06/30/2017 was reviewed which showed no CT evidence for pulmonary embolism, no lymphadenopathy, there was right hemidiaphragm elevation noted. There was some groundglass opacity at the lung bases, possibly pneumonitis. On 01/04/2018 patient seen in follow-up. Patient was started on IV diuretics, and he reports his breathing is easier today, patient is diuresing, currently on room air, with O2 sat at 97%. Febrile, no wheezing, no chest congestion. Lung sounds positive for some crackles at the left lower base, no peripheral edema noted. Patient's chest x-ray, and previous CT from June 2017 were reviewed with the patient and the family, no acute findings other than the right hemidiaphragm elevation were noted. We will repeat CT chest today. Patient was observed ambulating briskly down the heard approximately 300 feet on room air, and the patient did not desaturate, he maintaining saturations above 95%, did not become tachycardic, patient did not get shortness of breath, he was comfortably conversing during the walk with the nurse practitioner. The possibility of obstructive sleep apnea causing his shortness of breath is unlikely. Patient will need outpatient PFT in the office. For now patient is stable, and is requesting to go home. Patient could possibly be discharged home today, pending the results of his CT chest are negative for any acute abnormalities. Objective - Vital Signs Vital signs: Vital Signs Temp 98.1 F 01/04/18 11:45 Pulse 67 01/04/18 11:45 Resp 18 01/04/18 11:45 BP 167/68 01/04/18 11:45 Pulse Ox 97 01/04/18 11:45 Intake & Output 01/03/18 01/04/18 01/04/18 18:59 06:59 18:59 Intake Total 820 195.471 820 Output Total 450 Balance 820 195.471 370 Weight 88.2 kg Intake: Intake, IV Titration 195.471 Amount Heparin Sodium,Porcine 25 195.471 ,000 unit In Dextrose 5% in Water 500 ml @ 11.3 UNITS/KG/HR 19.98 mls/hr IV .Q24H [facility] Rx#: [id number] Oral 620 820 Other 200 Output: Urine 450 Other: Voiding Method Toilet Toilet # Voids 2 - Exam Constitutional General appearance: no acute distress, obese - EENT Eyes: EOMI, PERRLA, dentition normal ENT: NA/AT, normal oropharynx Ears: bilateral: normal - Neck Neck: no lymphadenopathy, normal ROM Carotids: bilateral: upstroke normal Thyroid: bilateral: normal size - Respiratory Respiratory: bilateral: rales left lower base - Cardiovascular Rhythm: regular Heart sounds: normal: S1, S2 ankle Peripheral Edema: absent: None foot Peripheral Edema: absent: None leg Peripheral Edema: absent: None radial pulse Peripheral Pulses: bilateral: Normal dorsalis pedis Peripheral Pulses: bilateral: Normal - Gastrointestinal General gastrointestinal: no organomegaly, soft, no tenderness - Integumentary Integumentary: normal turgor - Neurologic Neurologic: CNII-XII intact - Musculoskeletal Musculoskeletal: gait normal, strength equal bilaterally - Psychiatric Psychiatric: A&O x's 3, appropriate affect, intact judgment & insight - Labs CBC & Chem 7: 01/03/18 11:45 01/03/18 11:45 Labs: Abnormal Lab Results - Last 24 Hours (Table) 01/03/18 01/03/18 01/03/18 Range/Units 17:08 17:19 17:19 APTT (22.0-30.0) sec D-Dimer (<0.60) mg/L FEU POC Glucose (mg/dL) 152 H (75-99) mg/dL Hemoglobin A1c 6.3 H (4.0-6.0) % CK-MB (CK-2) 2.9 H* (0.0-2.4) ng/mL 01/03/18 01/03/18 01/03/18 Range/Units 17:19 20:03 20:24 APTT 44.9 H (22.0-30.0) sec D-Dimer 0.66 H (<0.60) mg/L FEU POC Glucose (mg/dL) 104 H (75-99) mg/dL Hemoglobin A1c (4.0-6.0) % CK-MB (CK-2) (0.0-2.4) ng/mL 01/04/18 01/04/18 01/04/18 Range/Units 00:08 06:20 06:54 APTT 48.6 H (22.0-30.0) sec D-Dimer (<0.60) mg/L FEU POC Glucose (mg/dL) 115 H (75-99) mg/dL Hemoglobin A1c (4.0-6.0) % CK-MB (CK-2) 2.9 H* (0.0-2.4) ng/mL 01/04/18 Range/Units 12:28 APTT (22.0-30.0) sec D-Dimer (<0.60) mg/L FEU POC Glucose (mg/dL) 338 H (75-99) mg/dL Hemoglobin A1c (4.0-6.0) % CK-MB (CK-2) (0.0-2.4) ng/mL Assessment and Plan Plan: Assessment: #1. Shortness of breath, under investigation, could possibly be related to diastolic congestive heart failure. Patient will need an outpatient PFT, we'll repeat CT chest today. #2. Coronary artery disease, status post coronary artery bypass grafting 4 years ago, and with history of recent stenting in October 2017 #3. Mild elevation of proBNP, possibly related to diastolic congestive heart failure, based on the echo results from 09/17/2017 which showed left ventricular systolic function with EF between 55-60% #4. Chronic elevation of the right hemidiaphragm, possibly related to previous CABG #5. Diabetes mellitus type 2 #6. Hypertension, hyperlipidemia #7. Osteoarthritis #8. Patient is a lifetime nonsmoker, reports some secondhand smoke exposure, along with some exposure to occupational diesel fuel fumes. CTA chest from June 2017 did not show greater than 1 cm hilar or mediastinal lymph nodes. #9. Gout #10. History of skin cancer Plan: Patient was observed walking briskly down the heard, and there was no evidence of desaturation, tachycardia, or shortness of breath noted. We will repeat CT chest today, patient will need an outpatient PFT. Patient has responded well to IV diuretics. His breathing is easier, currently on room air, denies any chest pain, denies any chest heaviness. From pulmonary standpoint patient could be discharged home today, pending the results of his computed tomography scan of the chest. He will need an outpatient follow-up with Dr. Rush in the office for outpatient PFT. I performed a history & physical examination of the patient and discussed their management with my nurse practitioner, Dari Pavon. I reviewed the nurse practitioner's note and agree with the documented findings and plan of care. Lung sounds are positive for some limited crackles at the left lower base. The findings and the impression was discussed with the patient. I attest to the documentation by the nurse practitioner. Time with Patient: Less than 30
--- NOTE | 2018-01-04 15:20 | CT ---
EXAMINATION TYPE: CT chest w con DATE OF EXAM: 01/04/2018 COMPARISON: CTA chest June 30, 2017. Chest x-ray from yesterday and older studies. HISTORY: SOB. CT DLP: 422.5 mGycm Automated exposure control for dose reduction was used. CONTRAST: CT scan of the chest is performed with IV Contrast, patient injected with 80ml mL of Isovue M300. FINDINGS: LUNGS: There is chronic elevated right hemidiaphragm redemonstrated. Lungs remain clear without suspi cious new consolidation or groundglass opacity. No pleural effusion or pneumothorax is evident bilate rally. Some motion artifact degradation is present. There is chronic right basilar consolidation or s carring. No suspicious nodule or mass is identified. MEDIASTINUM: There are no greater than 1 cm hilar or mediastinal lymph nodes. No pericardial effusi on is seen. There is severe jackson coronary artery calcification but post CABG changes with mediastin al clips and sternal wires is redemonstrated. There is persistent moderate mixed plaque in the left s ubclavian artery without significant stenosis clearly seen. There is stable mild cardiomegaly. OTHER: There are large bridging osteophytes in thoracic spine redemonstrated. IMPRESSION: Chronically elevated right hemidiaphragm. No new suspicious acute pulmonary process iden tified. Stable cardiomegaly and post-CABG changes noted.
--- NOTE | 2018-01-04 15:51 | P.PN ---
Subjective Progress Note Date: 01/04/18 77 years old male patient of Tim Mark with past medical history of coronary artery disease status post CABG in 2014, and this diabetes mellitus type 2 with hypoglycemia hypertension and hypertensive perivascular disease, diabetes mellitus type 2, hyperlipidemia, patient underwent coronary artery bypass graft with MACHUCA to LAD, saphenous venous graft to the obtuse marginal, saphenous venous graft to the PDA RCA, saphenous venous graft to the diagonal branch, , with recent PTCA 11/15/2017 showing occluded saphenous vein graft to the diagonal branch with severe disease in the left main , proximal LAD and diagonal branch, with successful stenting off the left main disease and stenting of the proximal LAD and diagonal branch performed by Dr. Wang Patient presents to the emergency room after his discharge 11/15/2017 with progressive shortness of breath, dyspnea with exertion, PND, with improvement of shortness of breath on sitting upright position. Patient has chest pressure without any radiation patient has nitroglycerin at home which he did not take as he didn't think that this would be a cardiac etiology He was seen by his primary bathhouse attendant Dr. Mark He was started on a diuretic. This was discontinued later when he was noted to have elevated heart rate, during cardiac rehab . 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 Patient denies any leg pain claudication no leg swelling no melena and hematochezia no fever no chills 01/04: Patient was seen by Dr Khan with recommendations to continue IV Lasix, added oral nitrates. No repeat echo necessary. CT chest with contrast reveals chronically elevated right hemidiaphragm. No new suspicious acute pulmonary process identified. Stable cardiomegaly and post-CABG changes noted. Dr. Rush is planning for outpatient PFTs in the office. Anticipate possible discharge by tomorrow. Objective - Vital Signs Vital signs: Vital Signs Temp 97.5 F L 01/04/18 07:40 Pulse 64 01/04/18 08:03 Resp 18 01/04/18 07:40 BP 140/63 01/04/18 07:40 Pulse Ox 97 01/04/18 07:40 Intake & Output 01/03/18 01/04/18 01/04/18 18:59 06:59 18:59 Intake Total 820 195.471 420 Output Total 450 Balance 820 195.471 -30 Weight 88.2 kg Intake: Intake, IV Titration 195.471 Amount Heparin Sodium,Porcine 25 195.471 ,000 unit In Dextrose 5% in Water 500 ml @ 11.3 UNITS/KG/HR 19.98 mls/hr IV .Q24H [facility] Rx#: [id number] Oral 620 420 Other 200 Output: Urine 450 Other: Voiding Method Toilet Toilet # Voids 2 - Exam General appearance: cooperative, no acute distress - EENT Eyes: anicteric sclerae, EOMI, PERRLA, normal appearance ENT: NA/AT, normal oropharynx - Neck Neck: no lymphadenopathy, normal ROM, no other, no rigidity, no stridor, no thyromegaly - Respiratory Respiratory: bilateral: CTA, negative: diminished, dullness, rales, rhonchi, wheezing - Cardiovascular Rhythm: regular Heart sounds: normal: S1, S2 Abnormal Heart Sounds: no systolic murmur, no diastolic murmur, no rub, no S3 Gallop, no S4 Gallop, no click, no other - Gastrointestinal General gastrointestinal: normal bowel sounds, soft - Integumentary Integumentary: decreased turgor, normal - Neurologic Neurologic: CNII-XII intact - Musculoskeletal Musculoskeletal: gait normal, strength equal bilaterally - Psychiatric Psychiatric: A&O x's 3, appropriate affect, intact judgment & insight - Labs CBC & Chem 7: 01/03/18 11:45 01/03/18 11:45 Labs: Abnormal Lab Results - Last 24 Hours (Table) 01/03/18 01/03/18 01/03/18 Range/Units 11:45 11:45 11:45 RBC 3.82 L (4.30-5.90) m/uL Hgb 11.7 L (13.0-17.5) gm/dL Hct 34.5 L (39.0-53.0) % INR (<1.2) APTT (22.0-30.0) sec D-Dimer (<0.60) mg/L FEU Glucose 181 H (74-99) mg/dL POC Glucose (mg/dL) (75-99) mg/dL Hemoglobin A1c (4.0-6.0) % Magnesium 1.3 L (1.6-2.3) mg/dL CK-MB (CK-2) 3.3 H* (0.0-2.4) ng/mL 01/03/18 01/03/18 01/03/18 Range/Units 11:45 17:08 17:19 RBC (4.30-5.90) m/uL Hgb (13.0-17.5) gm/dL Hct (39.0-53.0) % INR 1.2 H (<1.2) APTT (22.0-30.0) sec D-Dimer (<0.60) mg/L FEU Glucose (74-99) mg/dL POC Glucose (mg/dL) 152 H (75-99) mg/dL Hemoglobin A1c (4.0-6.0) % Magnesium (1.6-2.3) mg/dL CK-MB (CK-2) 2.9 H* (0.0-2.4) ng/mL 01/03/18 01/03/18 01/03/18 Range/Units 17:19 17:19 20:03 RBC (4.30-5.90) m/uL Hgb (13.0-17.5) gm/dL Hct (39.0-53.0) % INR (<1.2) APTT 44.9 H (22.0-30.0) sec D-Dimer 0.66 H (<0.60) mg/L FEU Glucose (74-99) mg/dL POC Glucose (mg/dL) (75-99) mg/dL Hemoglobin A1c 6.3 H (4.0-6.0) % Magnesium (1.6-2.3) mg/dL CK-MB (CK-2) (0.0-2.4) ng/mL 01/03/18 01/04/18 01/04/18 Range/Units 20:24 00:08 06:20 RBC (4.30-5.90) m/uL Hgb (13.0-17.5) gm/dL Hct (39.0-53.0) % INR (<1.2) APTT 48.6 H (22.0-30.0) sec D-Dimer (<0.60) mg/L FEU Glucose (74-99) mg/dL POC Glucose (mg/dL) 104 H (75-99) mg/dL Hemoglobin A1c (4.0-6.0) % Magnesium (1.6-2.3) mg/dL CK-MB (CK-2) 2.9 H* (0.0-2.4) ng/mL 01/04/18 Range/Units 06:54 RBC (4.30-5.90) m/uL Hgb (13.0-17.5) gm/dL Hct (39.0-53.0) % INR (<1.2) APTT (22.0-30.0) sec D-Dimer (<0.60) mg/L FEU Glucose (74-99) mg/dL POC Glucose (mg/dL) 115 H (75-99) mg/dL Hemoglobin A1c (4.0-6.0) % Magnesium (1.6-2.3) mg/dL CK-MB (CK-2) (0.0-2.4) ng/mL Assessment and Plan Plan: 1. Worsening Dyspnea on exertion and unstable angina secondary to hypertensive cardiomyopathy with preserved ejection fraction 55-60%, without any recent evidence of pulmonary hypertension RVSP under 35 last echocardiogram 08/2017, recent coronary stenting of the distal left main and proximal LAD and diagonal branch 11/16/2017,. Troponin negative with EKG nonsuggestive of OR. Cardiology evaluation 1 the hospital, d-dimer to be checked, might need CTA of the chest, pulmonary consultation. Patient has aspirin, syncopal 20, nitro,. Patient would need full pulmonary evaluation to include outpatient PFT, sleep study,. 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 No computed tomography scan available for review from previous admissions. Continue IV Lasix. 2. coronary artery bypass graft with MACHUCA to LAD saphenous venous graft to the diagonal, obtuse marginal, PDA of the RCA in 2014 recent stent distal left main , proximal LAD, diagonal branch 11/16/2017- continue aspirin, pravastatin, lisinopril 20 mg daily. 3. Hypertension and hypertensive cardiovascular disease increase lisinopril to 20 mg daily and reduce atenolol to 25 mg daily patient would follow with Dr. Saez as outpatient for follow-up on blood pressure 3. Diabetes mellitus type 2 uncontrolled continue metformin 1000 mg orally twice every day and glipizide 5 mg orally twice every day check A1c Levemir 20 units daily 4. Hyperlipidemia continue Pravachol 40 mg orally at bedtime. 5. CK D stage III, GFR 59, creatinine 1.18 on admission baseline creatinine between 1.07-1.4 over the past 4 years 6. History of gout continue with colchicine. 7. Left hand carpal tunnel syndrome. 8 Hypomagnesemia replacement by protoco 9. Ischemic cardiomyopathy with ejection fraction of 35% we will continue atenolol 50 mg orally twice every day and lisinopril 10 mg orally once every day , check echocardiogram in about 2 months .This has improved, EF 55-60% 2017 10. 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 Rush nebulizers given, Pulmicort and DuoNeb, might need short-term steroids none started currently Discharge plan: To be determined Impression and plan of care have been directed as dictated by the signing physician. Brandi Giles nurse practitioner acting as scribe for signing physician.
[2018-01-04] MEDS: ISOSORBIDE MONONITRATE 20 MG TAB PO SCH (16:26)
[2018-01-04 16:55] LABS: Glucose,Whole Blood 57 mg/dL (75-99)
[2018-01-04 17:13] LABS: Glucose,Whole Blood 75 mg/dL (75-99)
[2018-01-04] MEDS: amLODIPine 2.5 MG TAB PO SCH (19:59)
[2018-01-04] MEDS: PRAVASTATIN SODIUM 40 MG TAB PO SCH (19:59)
[2018-01-04 20:01] VITALS: RESP 16
[2018-01-04] MEDS: ASPIRIN 81 MG PO SCH (20:01)
[2018-01-04 20:58] LABS: Glucose,Whole Blood 235 mg/dL (75-99)
[2018-01-05 06:57] LABS: Calcium 9.3 mg/dL (8.4-10.2); Potassium 4.5 mmol/L (3.5-5.1)
[2018-01-05 07:11] LABS: Glucose,Whole Blood 142 mg/dL (75-99)
[2018-01-05] MEDS: COLCHICIN-PROBENECID 0.5-500MG 1 EACH TAB PO SCH (07:38)
[2018-01-05] MEDS: glipiZIDE 5 MG TAB PO SCH (07:38)
[2018-01-05] MEDS: ISOSORBIDE MONONITRATE 20 MG TAB PO SCH (07:38)
[2018-01-05] MEDS: LISINOPRIL 20 MG TAB PO SCH (07:38)
[2018-01-05] MEDS: ATENOLOL 25 MG TAB PO SCH (07:38)
[2018-01-05 07:39] VITALS: TEMP 97.8
[2018-01-05] MEDS: INSULIN ASPART 100 UNIT/ML 1 ML 10 ML VIAL SQ SCH ×2 (07:39→12:36)
[2018-01-05] MEDS: FUROSEMIDE 10 MG/ML 4 ML VIAL IV SCH (07:39)
[2018-01-05] MEDS ORDERED: LISINOPRIL 10 MG TAB PO SCH (08:29)
--- NOTE | 2018-01-05 08:33 | P.PN ---
Subjective Progress Note Date: 01/05/18 Principal diagnosis: Shortness of breath This is a pleasant 77-year-old gentleman who sees Dr. Mark in the office as an outpatient with a known history of coronary artery disease and status post coronary artery bypass grafting 4 with MACHUCA to LAD, SVG to diagonal, SVG to OM, and SVG to PDA, as well as multiple comorbid conditions presented to the hospital complaining of exertional dyspnea associated with orthopnea as well as chest discomfort. The patient underwent a heart catheterization in October 2017 and at that point he was found to have severe triple-vessel coronary artery disease with patent MACHUCA to LAD, patent SVG to OM, patent SVG to PDA, and occluded SVG to diagonal. At that point the patient underwent successful stenting of the left main and diagonal. He was in his usual state of health today about 3 weeks ago when he started experiencing exertional dyspnea and over the last several days was associated with orthopnea. He clearly stated that every time lay flat in bed I cannot breathe. No bilateral lower extremities edema. Beside that he describes the chest discomfort does not seems to be exertional. No dizziness or lightheadedness and no syncope. No change in the weight. The chest x-ray showed chronic changes only. The EKG showed sinus rhythm with Q waves in the anteroseptal leads and nonspecific changes. The BNP came in to be around 2000. The patient underwent an echocardiogram in August 2017 and that revealed normal LV function without any significant valvular abnormalities. On physical examination today he does have crackles in the left lung base. No severe bilateral lower extremities edema noted. He was started on Lasix IV yesterday. On follow-up with the patient today, January 052017, he continues to have shortness of breath but this clearly better than yesterday. His physical examination did not reveal any crackles which where here yesterday. No chest pain and no chest discomfort. I am going to DC the Lasix IV and start the patient on Lasix by mouth at 40 mg twice a day which is his home dose. He can be discharged home later on today. Objective - Vital Signs Vital signs: Vital Signs Temp 97.8 F 01/05/18 07:35 Pulse 64 01/05/18 07:35 Resp 16 01/05/18 07:35 BP 184/76 01/05/18 07:35 Pulse Ox 97 01/05/18 07:35 Intake & Output 01/04/18 01/05/18 01/05/18 18:59 06:59 18:59 Intake Total 1240 Output Total 1000 1250 Balance 240 -1250 Weight 85.842 kg 85.5 kg 84.2 kg Intake: Oral 1240 Output: Urine 1000 1250 Other: Voiding Method Toilet Toilet Toilet - Constitutional General appearance: Present: no acute distress - Respiratory Respiratory: bilateral: CTA - Cardiovascular Rhythm: regular Heart sounds: normal: S1, S2 Abnormal Heart Sounds: Present: systolic murmur - Labs CBC & Chem 7: 01/03/18 11:45 01/05/18 06:16 Labs: Abnormal Lab Results - Last 24 Hours (Table) 01/04/18 01/04/18 01/04/18 Range/Units 12:28 16:49 20:56 Carbon Dioxide (22-30) mmol/L BUN (9-20) mg/dL Creatinine (0.66-1.25) mg/dL Glucose (74-99) mg/dL POC Glucose (mg/dL) 338 H 57 L 235 H (75-99) mg/dL 01/05/18 01/05/18 Range/Units 06:16 07:08 Carbon Dioxide 34 H (22-30) mmol/L BUN 28 H (9-20) mg/dL Creatinine 1.50 H (0.66-1.25) mg/dL Glucose 132 H (74-99) mg/dL POC Glucose (mg/dL) 142 H (75-99) mg/dL Assessment and Plan Assessment: Assessment #1 congestive heart failure exacerbation secondary to diastolic dysfunction. #2 severe underlying coronary artery disease and status post revascularization in the term of bypass as well as a stenting. It was described above. #3 preserved left ventricular systolic function on echocardiogram was performed in August 2017 #4 hypertension #5 multiple comorbid conditions Plan #1 DC Lasix IV and start the patient on Lasix by mouth #2 the patient can be discharged home. Thank you for allowing us participate in his care
[2018-01-05] MEDS ORDERED: LISINOPRIL 10 MG TAB PO STA (08:48)
[2018-01-05] MEDS: BUDESONIDE 0.5 MG/2 ML NEBU INHALATION SCH (09:02)
[2018-01-05] MEDS: IPRATROPIUM-ALBUTEROL 3 ML NEB INHALATION PRN (09:02)
[2018-01-05] MEDS: INSULIN DETEMIR 100 UNIT/ML 10 ML VIAL SQ SCH (09:28)
[2018-01-05 11:12] VITALS: BP 147/66; PULSE 69
--- NOTE | 2018-01-05 12:04 | P.PN ---
Subjective Progress Note Date: 01/05/18 Principal diagnosis: Diastolic congestive heart failure Mr. Jo is a 77-year-old white male patient of Dr. Morgan Saez, presented to the emergency department on 01/03/2018 at 1140 with complaints of sternal heaviness, increasing exertional dyspnea and orthopnea. He reports his symptoms become progressively worse since the placement of his coronary stents on 11/16/2017 to the distal left main, proximal LAD and diagonal branch. Patient has a history of coronary artery bypass grafting 4 years ago. Does not have any history of chronic lung disease, patient is a lifetime nonsmoker. 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 Does not wear oxygen at his baseline. 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 Mark for his "chest congestion ". Patient reports feeling dizzy and lightheaded after being started on diuretics, in the diuretics were discontinued. Patient was supposed to start in the cardiac rehab program, could not participate due to his lightheadedness, and exertional dyspnea. Patient has been experiencing chest heaviness on and of for last several days. Patient reports gasping for air when he is laying down flat. Chest x-ray completed on 01/03/2018 shows elevation of the right hemidiaphragm, previously seen on chest x-ray on 11/28/2017. Strandy atelectasis in the lower lungs, but no consolidation or pleural effusion. 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 Patient reports only occasional cough, no wheezing, no sputum production, no chest wall tenderness, no peripheral swelling. Lab work showed a CBC of 5.0, hemoglobin of 11.7, INR is 1.2, electrolytes were within normal limits, BUN is 15, creatinine is 1.18. CK-MB was 3.3, troponin was negative 1, proBNP was mildly elevated at 2070, liver enzymes were within normal limits. We were asked to see the patient in consultation regarding his exertional dyspnea. Patient denies any fever, chills , sputum production, weight loss. CTA chest from 06/30/2017 was reviewed which showed no CT evidence for pulmonary embolism, no lymphadenopathy, there was right hemidiaphragm elevation noted. There was some groundglass opacity at the lung bases, possibly pneumonitis. On 01/04/2018 patient seen in follow-up. Patient was started on IV diuretics, and he reports his breathing is easier today, patient is diuresing, currently on room air, with O2 sat at 97%. Febrile, no wheezing, no chest congestion. Lung sounds positive for some crackles at the left lower base, no peripheral edema noted. Patient's chest x-ray, and previous CT from June 2017 were reviewed with the patient and the family, no acute findings other than the right hemidiaphragm elevation were noted. We will repeat CT chest today. Patient was observed ambulating briskly down the heard approximately 300 feet on room air, and the patient did not desaturate, he maintaining saturations above 95%, did not become tachycardic, patient did not get shortness of breath, he was comfortably conversing during the walk with the nurse practitioner. The possibility of obstructive sleep apnea causing his shortness of breath is unlikely. Patient will need outpatient PFT in the office. For now patient is stable, and is requesting to go home. Patient could possibly be discharged home today, pending the results of his CT chest are negative for any acute abnormalities. Objective - Vital Signs Vital signs: Vital Signs Temp 97.8 F 01/05/18 11:10 Pulse 69 01/05/18 11:10 Resp 16 01/05/18 11:10 BP 147/66 01/05/18 11:10 Pulse Ox 97 01/05/18 11:10 Intake & Output 01/04/18 01/05/18 01/05/18 18:59 06:59 18:59 Intake Total 1240 236 Output Total 1000 1250 850 Balance 240 -1250 -614 Weight 85.842 kg 85.5 kg 84.2 kg Intake: Oral 1240 236 Output: Urine 1000 1250 850 Other: Voiding Method Toilet Toilet Toilet - Exam GENERAL EXAM: Alert, active, comfortable in no apparent distress. HEAD: Normocephalic. EYES: Normal reaction of pupils, equal size. NOSE: Clear with pink turbinates. THROAT: No erythema or exudates. NECK: No masses, no JVD. CHEST: No chest wall deformity. LUNGS: Equal air entry with no crackles, wheeze, rhonchi or dullness. CVS: S1 and S2 normal with no audible murmur, regular rhythm. ABDOMEN: No hepatosplenomegaly, normal bowel sounds, no guarding or rigidity. SPINE: No scoliosis or deformity SKIN: No rashes CENTRAL NERVOUS SYSTEM: No focal deficits, tone is normal in all 4 extremities. EXTREMITIES: There is no peripheral edema. No clubbing, no cyanosis. Peripheral pulses are intact. - Labs CBC & Chem 7: 01/03/18 11:45 01/05/18 06:16 Labs: Abnormal Lab Results - Last 24 Hours (Table) 01/04/18 01/04/18 01/04/18 Range/Units 12:28 16:49 20:56 Carbon Dioxide (22-30) mmol/L BUN (9-20) mg/dL Creatinine (0.66-1.25) mg/dL Glucose (74-99) mg/dL POC Glucose (mg/dL) 338 H 57 L 235 H (75-99) mg/dL 01/05/18 01/05/18 Range/Units 06:16 07:08 Carbon Dioxide 34 H (22-30) mmol/L BUN 28 H (9-20) mg/dL Creatinine 1.50 H (0.66-1.25) mg/dL Glucose 132 H (74-99) mg/dL POC Glucose (mg/dL) 142 H (75-99) mg/dL Assessment and Plan Assessment: Assessment: #1. Shortness of breath, under investigation, could possibly be related to diastolic congestive heart failure. Patient will need an outpatient PFT, we'll repeat CT chest today. #2. Coronary artery disease, status post coronary artery bypass grafting 4 years ago, and with history of recent stenting in October 2017 #3. Mild elevation of proBNP, possibly related to diastolic congestive heart failure, based on the echo results from 09/17/2017 which showed left ventricular systolic function with EF between 55-60% #4. Chronic elevation of the right hemidiaphragm, possibly related to previous CABG #5. Diabetes mellitus type 2 #6. Hypertension, hyperlipidemia #7. Osteoarthritis #8. Patient is a lifetime nonsmoker, reports some secondhand smoke exposure, along with some exposure to occupational diesel fuel fumes. CTA chest from June 2017 did not show greater than 1 cm hilar or mediastinal lymph nodes. #9. Gout #10. History of skin cancer Plan: The patient was seen and evaluated by Dr. Rush. The patient is back to his baseline. He slept well last night. Continues to maintain good O2 saturations in the 90s on room air. He can be discharged home from the pulmonary standpoint. He'll follow-up in our office in 1-2 weeks' time. We'll perform full pulmonary function testing to evaluate for any underlying pulmonary disease. He is continued on diuretics. I, the cosigning physician, performed a history & physical examination of the patient. Lungs sounds are clear. Maintaining good O2 saturations in the 90s on room air. I discussed the assessment and plan of care with my nurse practitioner, Cheryl Grimes. I attest to the above note as dictated by her.
[2018-01-05 12:20] LABS: Glucose,Whole Blood 158 mg/dL (75-99)
[2018-01-05] MEDS: HEPARIN SODIUM,PORCINE 25,000 UNIT in DEXTROSE 5% IN WATER 500 ML IV SCH ×2 (13:33)
--- NOTE | 2018-01-05 14:27 | P.DS ---
Providers Date of admission: 01/03/18 13:23 Expected date of discharge: 01/05/18 Attending physician: Merry Santamaria Consults: 01/03/18 13:18 Consult Physician Urgent Consulting Provider: [facility] Consult Reason/Comments: Unstable angina Do you want consulting provider notified?: Yes 01/03/18 14:05 Consult Physician Routine Consulting Provider: Pramod Rush Consult Reason/Comments: shortness of breath, occupational exposure Do you want consulting provider notified?: Yes Primary care physician: [facility] Course: 77 years old male patient of [facility] Dr. Mark with past medical history of coronary artery disease status post CABG in 2014, and this diabetes mellitus type 2 with hypoglycemia hypertension and hypertensive perivascular disease, diabetes mellitus type 2, hyperlipidemia, patient underwent coronary artery bypass graft with MACHUCA to LAD, saphenous venous graft to the obtuse marginal, saphenous venous graft to the PDA RCA, saphenous venous graft to the diagonal branch, , with recent PTCA 11/15/2017 showing occluded saphenous vein graft to the diagonal branch with severe disease in the left main , proximal LAD and diagonal branch, with successful stenting off the left main disease and stenting of the proximal LAD and diagonal branch performed by Dr. Wang Patient presents to the emergency room after his discharge 11/15/2017 with progressive shortness of breath, dyspnea with exertion, PND, with improvement of shortness of breath on sitting upright position. Patient has chest pressure without any radiation patient has nitroglycerin at home which he did not take as he didn't think that this would be a cardiac etiology He was seen by his primary dry goods inspector Dr. Mark He was started on a diuretic. This was discontinued later when he was noted to have elevated heart rate, during cardiac rehab . 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 Patient denies any leg pain claudication no leg swelling no melena and hematochezia no fever no chills 01/04: Patient was seen by Dr Khan with recommendations to continue IV Lasix, added oral nitrates. No repeat echo necessary. CT chest with contrast reveals chronically elevated right hemidiaphragm. No new suspicious acute pulmonary process identified. Stable cardiomegaly and post-CABG changes noted. Dr. Rush is planning for outpatient PFTs in the office. Anticipate possible discharge by tomorrow. 01/05: Cardiology has changed IV Lasix to oral 40 mg twice daily. They have cleared him for discharge home today. Patient will be sent on new medications of Lasix indoor and nitroglycerin sublingual. Lisinopril dose as been increased. Patient will be discharged home today in stable condition. Discharge diagnoses: 1. Acute on chronic diastolic heart failure 2. Coronary artery bypass graft with MACHUCA to LAD saphenous venous graft to the diagonal, obtuse marginal, PDA of the RCA in 2014 recent stent distal left main , proximal LAD, diagonal branch 11/16/2017 3. Hypertension and hypertensive cardiovascular disease 3. Diabetes mellitus type 2 uncontrolled 4. Hyperlipidemia 5. CKD stage III 6. History of gout unspecified 7. Left hand carpal tunnel syndrome. 8. Hypomagnesemia 9. Ischemic cardiomyopathy with ejection fraction of 35% 10. 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 Brandi Giles nurse practitioner acting as scribe for signing physician. Patient Condition at Discharge: Good Plan - Discharge Summary Discharge Rx Participant: No New Discharge Prescriptions: New Furosemide [Lasix] 40 mg PO BID@0900,1600 #60 tab Isosorbide Mononitrate [Ismo] 10 mg PO BID@0900,1600 #60 tab Lisinopril [Zestril] 30 mg PO QAM #90 tab Nitroglycerin Sl Tabs [Nitrostat] 0.4 mg SUBLINGUAL Q5M PRN #25 tab PRN Reason: Chest Pain Continue Probenecid/Colchicine [Probenecid-Colchicine Tabs] 1 tab PO BID glipiZIDE [Glucotrol] 5 mg PO QAM Aspirin 81 mg PO HS Vitamin E 100 unit PO DAILY Multivitamins, Thera [Multivitamin (formulary)] 1 tab PO DAILY Ascorbic Acid [Vitamin C] 500 mg PO DAILY Atenolol 25 mg PO QAM Pravastatin Sodium [Pravachol] 40 mg PO DAILY amLODIPine [Norvasc] 2.5 mg PO HS HYDROcodone/APAP 7.5-325MG [[place] 7.5-325] 1 tab PO BID PRN PRN Reason: Pain Insulin Detemir [Levemir Flextouch] 20 unit SQ DAILY metFORMIN HCL [Glucophage] 1,000 mg PO BID Glucosamine Sulfate 500 mg PO BID Discontinued Lisinopril [Zestril] 20 mg PO QAM Discharge Medication List Probenecid/Colchicine [Probenecid-Colchicine Tabs] 1 tab PO BID 11/14/14 [ History] Ascorbic Acid [Vitamin C] 500 mg PO DAILY 12/02/15 [History] Aspirin 81 mg PO HS 12/02/15 [History] Multivitamins, Thera [Multivitamin (formulary)] 1 tab PO DAILY 12/02/15 [History ] Vitamin E 100 unit PO DAILY 12/02/15 [History] glipiZIDE [Glucotrol] 5 mg PO QAM 12/02/15 [History] Atenolol 25 mg PO QAM 11/02/17 [History] Glucosamine Sulfate 500 mg PO BID 01/03/18 [History] HYDROcodone/APAP 7.5-325MG [[place] 7.5-325] 1 tab PO BID PRN 01/03/18 [History] Insulin Detemir [Levemir Flextouch] 20 unit SQ DAILY 01/03/18 [History] Pravastatin Sodium [Pravachol] 40 mg PO DAILY 01/03/18 [History] amLODIPine [Norvasc] 2.5 mg PO HS 01/03/18 [History] metFORMIN HCL [Glucophage] 1,000 mg PO BID 01/03/18 [History] Furosemide [Lasix] 40 mg PO BID@0900,1600 #60 tab 01/05/18 [Rx] Isosorbide Mononitrate [Ismo] 10 mg PO BID@0900,1600 #60 tab 01/05/18 [Rx] Lisinopril [Zestril] 30 mg PO QAM #90 tab 01/05/18 [Rx] Nitroglycerin Sl Tabs [Nitrostat] 0.4 mg SUBLINGUAL Q5M PRN #25 tab 01/05/18 [Rx ] Follow up Appointment(s)/Referral(s): [facility] [Provider Group] - 1 Week (Dr. Mark follow up appointment- office will call with appointment date and time.) Morgan Saez MD [Primary Care Provider] - 1 Week Pramod Rush MD [STAFF PHYSICIAN] - 01/26/18 2:00 pm (outpatient PFT and follow-up with Dr. Rodriguez.) Patient Instructions/Handouts: Heart Failure (DC) Discharge Disposition: HOME SELF-CARE
[2018-01-05] MEDS ORDERED: FUROSEMIDE 40 MG TAB PO SCH (16:00)
== END 2018-01-05 13:32 | disposition home or self-care (01) | DRG 291 ==
LOC: EC 11:21 → 3OBS 13:23 → OBSVTOIN 01-04 14:19
PROVIDERS: ADMIT Family Medicine; ATTEND Family Medicine
DX: I13.0 Hypertensive heart and chronic kidney disease with heart failure and stage 1 through stage 4 chronic kidney disease, or unspecified chronic kidney disease (principal); I50.33 Acute on chronic diastolic (congestive) heart failure; J98.11 Atelectasis; I25.810 Atherosclerosis of coronary artery bypass graft(s) without angina pectoris; E11.22 Type 2 diabetes mellitus with diabetic chronic kidney disease; E11.649 Type 2 diabetes mellitus with hypoglycemia without coma; I43 Cardiomyopathy in diseases classified elsewhere; I25.5 Ischemic cardiomyopathy; E83.42 Hypomagnesemia; N18.3 Chronic kidney disease, stage 3 (moderate); I25.110 Atherosclerotic heart disease of native coronary artery with unstable angina pectoris; I44.0 Atrioventricular block, first degree; E78.5 Hyperlipidemia, unspecified; M10.9 Gout, unspecified; M19.91 Primary osteoarthritis, unspecified site; G56.02 Carpal tunnel syndrome, left upper limb; Z79.82 Long term (current) use of aspirin; Z79.4 Long term (current) use of insulin; Z79.899 Other long term (current) drug therapy; Z95.1 Presence of aortocoronary bypass graft; Z85.828 Personal history of other malignant neoplasm of skin; Z95.5 Presence of coronary angioplasty implant and graft; Z77.098 Contact with and (suspected) exposure to other hazardous, chiefly nonmedicinal, chemicals; Z77.22 Contact with and (suspected) exposure to environmental tobacco smoke (acute) (chronic); Z98.42 Cataract extraction status, left eye; Z87.81 Personal history of (healed) traumatic fracture; Z98.41 Cataract extraction status, right eye; Z96.1 Presence of intraocular lens; Z82.49 Family history of ischemic heart disease and other diseases of the circulatory system
CPT/HCPCS: 36415; 71046; 71260; 80048; 80053; 80061; 82550; 82553; 82785; 83036; 83735; 83880; 84484; 85025; 85379; 85610; 85730; 93005; 94640; 96374; 99291

== ENCOUNTER → 2018-01-31 | Outpatient (CLI) | payer MEDICARE ==
--- NOTE | 2018-01-31 09:28 | FL ---
Fluoroscopy INDICATION: Pain short of breath, history of pleural effusions. FINDINGS: Fluoroscopy time: 29 seconds. Images obtained: 2. Real-time observation is performed. There is elevation of the right diaphragm. With quiet breathing. Occipital motion of the right diaphragm is noted. During the sniffing. Occipital motion is again evid ent. Significant depression of the diaphragm during deep breathing is not evident. IMPRESSIONS: 1. Paradoxical motion with breathing of the right diaphragm.
== END | disposition home or self-care (01) ==
LOC: RADFLMAIN 09:02
PROVIDERS: ATTEND Internal Medicine
DX: J98.6 Disorders of diaphragm (principal)
CPT/HCPCS: 76000

== ENCOUNTER 2018-07-20 19:21 | Inpatient (IN) | payer MEDICARE ==
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
[2018-07-20 20:02] LABS: Basophils % (A) 0 %; Eosinophils # (A) 0.1 k/uL (0-0.7); Eosinophils % (A) 2 %; HCT 36.2 % (39.0-53.0); HGB 11.9 gm/dL (13.0-17.5); Lymphocytes # (A) 1.2 k/uL (1.0-4.8); Lymphocytes % (A) 29 %; MCH 30.7 pg (25.0-35.0); MCHC 32.9 g/dL (31.0-37.0); MCV 93.4 fL (80.0-100.0); Mean Platelet Volume 8.1; Monocytes # (A) 0.3 k/uL (0-1.0); Monocytes % (A) 6 %; Neutrophils # (A) 2.4 k/uL (1.3-7.7); Neutrophils % (A) 61 %; Platelet Count 155 k/uL (150-450); RBC 3.88 m/uL (4.30-5.90); RDW 14.8 % (11.5-15.5)
[2018-07-20 20:10] LABS: INR 1.2 (<1.2); Partial Thromboplastin Time 22.9 sec (22.0-30.0); Prothrombin Time 11.6 sec (9.0-12.0)
[2018-07-20 20:12] LABS: Albumin 4.2 g/dL (3.5-5.0); Calcium 9.7 mg/dL (8.4-10.2); Magnesium 1.4 mg/dL (1.6-2.3); Potassium 4.2 mmol/L (3.5-5.1); Total Bilirubin 0.7 mg/dL (0.2-1.3); Total Protein 7.4 g/dL (6.3-8.2)
[2018-07-20 20:28] LABS: Creatine Kinase MB 2.8 ng/mL (0.0-2.4); Troponin I 0.033 ng/mL (0.000-0.034)
--- NOTE | 2018-07-20 20:29 | XR ---
EXAMINATION TYPE: XR chest 2V DATE OF EXAM: 07/20/2018 COMPARISON: 01/26/2018 HISTORY: Short of breath TECHNIQUE: Frontal and lateral views of the chest are obtained. FINDINGS: Heart is enlarged. There are sternal wires. There is some infiltrate and atelectasis in th e right lower lobe. There is elevated right diaphragm. There is no heart failure. There are chest dimitri ds. IMPRESSION: Chronic elevated right diaphragm. New infiltrate and atelectasis at the right lung base compared to old exam.
[2018-07-20] MEDS ORDERED: MAGNESIUM SULFATE-D5W PMX 1 GM in DEXTROSE/WATER 1 100ML.BAG IVPB ONE (20:35)
[2018-07-20] MEDS ORDERED: FUROSEMIDE 10 MG/ML 4 ML VIAL IV STA (20:50)
[2018-07-20] MEDS ORDERED: NALOXONE 0.4 MG/ML 1 ML VIAL IV PRN (21:12)
[2018-07-20] MEDS: FUROSEMIDE 10 MG/ML 4 ML VIAL IV SCH (21:12)
[2018-07-20] MEDS ORDERED: ACETAMINOPHEN TAB 325 MG TAB PO PRN (21:12)
[2018-07-20 22:52] LABS: Glucose,Whole Blood 120 mg/dL (75-99)
[2018-07-20] MEDS ORDERED: ALBUTEROL NEBULIZED 2.5 MG/3 ML INHALATION PRN (23:02)
[2018-07-20] MEDS: CLOPIDOGREL 75 MG TAB PO SCH (23:26)
[2018-07-20] MEDS: ATORVASTATIN 80 MG TAB PO SCH (23:26)
[2018-07-20] MEDS: LISINOPRIL 10 MG TAB PO SCH (23:26)
[2018-07-20] MEDS: glipiZIDE 5 MG TAB PO SCH (23:26)
[2018-07-20] MEDS: amLODIPine 2.5 MG TAB PO SCH (23:26)
[2018-07-20] MEDS: COLCHICIN-PROBENECID 0.5-500MG 1 EACH TAB PO SCH (23:26)
[2018-07-21 05:57] LABS: Glucose,Whole Blood 155 mg/dL (75-99)
[2018-07-21 06:57] LABS: Calcium 9.7 mg/dL (8.4-10.2); Potassium 4.6 mmol/L (3.5-5.1)
[2018-07-21] MEDS: INSULIN ASPART 100 UNIT/ML 1 ML 10 ML VIAL SQ SCH ×4 (06:58→21:33)
[2018-07-21 08:04] LABS: Basophils % (A) 0 %; Eosinophils # (A) 0.1 k/uL (0-0.7); Eosinophils % (A) 1 %; HCT 36.4 % (39.0-53.0); HGB 11.6 gm/dL (13.0-17.5); Lymphocytes % (A) 19 %; MCH 30.5 pg (25.0-35.0); MCV 95.4 fL (80.0-100.0); Mean Platelet Volume 7.5; Monocytes # (A) 0.3 k/uL (0-1.0); Monocytes % (A) 6 %; Neutrophils # (A) 3.8 k/uL (1.3-7.7); Neutrophils % (A) 73 %; Platelet Count 163 k/uL (150-450); RBC 3.82 m/uL (4.30-5.90); RDW 14.8 % (11.5-15.5); WBC 5.2 k/uL (3.8-10.6)
[2018-07-21] MEDS ORDERED: Magnesium Replacement Protocol 1 EACH MISC MISCELLANE PRN (08:49)
[2018-07-21] MEDS ORDERED: ISOSORBIDE MONONITRATE 20 MG TAB PO SCH (09:00)
[2018-07-21] MEDS ORDERED: INSULIN DETEMIR 100 UNIT/ML 10 ML VIAL SQ SCH ×2 (09:00→21:00)
[2018-07-21] MEDS ORDERED: SODIUM CHLORIDE 0.9% 1,000 ML in EMPTY BAG 1 BAG IV ONE (09:06)
[2018-07-21] MEDS ORDERED: ATORVASTATIN 80 MG TAB PO STA (09:06)
[2018-07-21] MEDS ORDERED: NITROGLYCERIN SL TABS 0.4 MG TAB SUBLINGUAL PRN ×2 (09:06→12:54)
[2018-07-21] MEDS ORDERED: ALPRAZolam 0.5 MG TAB PO PRN (09:06)
[2018-07-21] MEDS ORDERED: ALPRAZolam 0.25 MG TAB PO PRN (09:06)
[2018-07-21] MEDS ORDERED: ASPIRIN 325 MG TAB PO STA (09:06)
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
[2018-07-21] MEDS: glipiZIDE 5 MG TAB PO SCH (09:37)
[2018-07-21] MEDS: FUROSEMIDE 10 MG/ML 4 ML VIAL IV SCH (09:37)
[2018-07-21] MEDS: LISINOPRIL 10 MG TAB PO SCH (09:37)
[2018-07-21] MEDS: ATENOLOL 25 MG TAB PO SCH (09:37)
[2018-07-21] MEDS: MAGNESIUM SULFATE-D5W PMX 1 GM in DEXTROSE/WATER 1 100ML.BAG IVPB SCH ×3 (09:46→15:27)
[2018-07-21] MEDS ORDERED: LIDOCAINE 1% INJ 10MG/ML (20 ML MDV) ONE (11:15)
[2018-07-21] MEDS ORDERED: fentaNYL (PF) 50 MCG/ML 2 ML AMP ONE (11:33)
[2018-07-21] MEDS ORDERED: MIDAZOLAM 2 MG/2 ML VIAL ONE (11:47)
[2018-07-21] MEDS ORDERED: MIDAZOLAM 2 MG/2 ML VIAL IVP ONE (11:50)
[2018-07-21] MEDS ORDERED: fentaNYL (PF) 50 MCG/ML 2 ML AMP IVP ONE (11:50)
[2018-07-21] MEDS ORDERED: LIDOCAINE 1% INJ 10MG/ML (20 ML MDV) SQ ONE (11:54)
[2018-07-21] MEDS ORDERED: IV FLUID CONTINUATION 1,000 ML IV ONE (11:55)
[2018-07-21] MEDS ORDERED: BIVALIRUDIN BOLUS 250 MG/50 ML IV ONE (12:05)
[2018-07-21] MEDS ORDERED: BIVALIRUDIN 250 MG in SODIUM CHLORIDE 0.9% 40 ML IV ONE (12:06)
[2018-07-21] MEDS ORDERED: IOPAMIDOL-370 125ML BTL INJ ONE (12:18)
[2018-07-21] MEDS ORDERED: IOPAMIDOL-370 100ML BTL INJ ONE (12:29)
[2018-07-21] MEDS ORDERED: ATROPINE SULFATE 0.1 MG/ML 10ML SYRINGE IV PRN (12:54)
[2018-07-21] MEDS ORDERED: ZOLPIDEM 5 MG TAB PO PRN (12:54)
[2018-07-21] MEDS ORDERED: MAG HYDROX/AL HYDROX/SIMETH 30 ML CUP PO PRN (12:54)
[2018-07-21] MEDS ORDERED: RX INFO: IV CONTRAST WAS GIVEN 1 EACH MISC MISCELLANE PRN (12:54)
[2018-07-21 13:00] LABS: Glucose,Whole Blood 160 mg/dL (75-99)
[2018-07-21] MEDS ORDERED: SODIUM CHLORIDE 0.9% 1,000 ML IV SCH (13:00)
--- NOTE | 2018-07-21 14:04 | CC ---
CARDIAC CATHETERIZATION REPORT Mr. Jo is a 78-year-old male with a history of coronary disease who presented with symptoms of progressive dyspnea, underwent cardiac catheterization, was found to have significant in-stent stenosis of the mid distal left main, proximal LAD. In view of that, recommendation made regarding coronary angioplasty and stenting. The procedure as well as risks and complications were discussed with the patient who is in full understanding and agreement. DESCRIPTION OF PROCEDURE: A 6-Urdu EBU 3.75 guiding catheter was introduced into the system. After cannulating the left main, a 0.014 balanced medium weight J-wire was advanced across the lesion and positioned distally. Then a 3.0 x 50 mm Trek balloon was advanced and two inflations at a maximum of 12 atmospheres was done. Following that, the balloon was removed and a 3.5 x 18 mm Xience CR stent was deployed. It was dilated at 16 atmospheres. Following that, the balloon was removed and a 4.5 x 12 mm NC Trek balloon was advanced and inflation of proximal segment at a maximum of 16 atmospheres was done. After the last inflation, after appropriate wait the balloon and the guidewire were withdrawn back in the guiding catheter. Images were obtained and repeated. Those images revealed stable successful stenting. At that point, the left ventricle end-diastolic pressure was calculated. Following that the catheter and sheaths were removed. Hemostasis was obtained with deployment of an Angio-Seal. There was no immediate complication. Patient was returned to his room in stable condition. Of note, the patient received Angiomax per protocol. He had no significant chest pain or EKG changes with the inflation. RESULTS: Successful stenting of a distal left main proximal LAD in-stent restenosis with reduction of stenosis from 99% to less than 5%. RECOMMENDATION: Patient will be continued on aspirin, Plavix beta todd, and statin. The importance of dual antiplatelet treatment were discussed with the patient and he is in full understanding and agreement. Duration of procedure: 41 minutes. MMODL / IJN: [id number] /
[2018-07-21 14:06] VITALS: RESP 18
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
--- NOTE | 2018-07-21 14:34 | CC ---
CARDIAC CATHETERIZATION REPORT Mr. Jo is a 78-year-old male with known history of coronary artery disease, status post coronary artery bypass grafting, history of percutaneous revascularization of the left main in October of this year, hypertension, hyperlipidemia, who presented with symptoms of progressive dyspnea on exertion, reminding him of the way he felt prior to the stenting. There was no evidence of acute enzymatic changes but because of the pattern of symptoms, recommendation made regarding cardiac catheterization. The procedure as well as risks and complications were discussed with the patient who is in full understanding and agreement. DESCRIPTION OF PROCEDURE: Patient was brought to the clinical laboratory medical director in a fasting semi-sedated state after receiving fentanyl and Benadryl and achieving moderate conscious sedated state, using Xylocaine anesthesia and Seldinger technique, a 6-Faroese sheath was introduced in left femoral artery. Selective right and left coronary angiography was performed 6-Faroese 4 bend right and left Dorothy catheter. Multiple views of the coronary artery including hemiaxial views were obtained. Following that, the 6-Faroese FR4 catheter was used to cannulate the saphenous vein graft to the right coronary artery, obtuse marginal branch and MACHUCA to LAD. Images of the grafts were obtained. Following that, angioplasty and stent was performed. Following that, a 6-Faroese tight pigtail catheter was introduced in the left ventricle and pressures were calculated. Following that, catheter and sheath were removed. Hemostasis was obtained with deployment of an Angio-Seal. There was no immediate complications. Patient is returned to his room in stable condition. FINDINGS: FLUOROSCOPY: There was severe calcification involving the left main, left circumflex and the right coronary artery. SELECTIVE CORONARY ANGIOGRAPHY: LEFT MAIN: This is a large-sized vessel bifurcating into left circumflex, left anterior descending artery. Left main coronary artery has a 99% stenosis distally involving the proximal LAD. The proximal left main is patent. LEFT ANTERIOR DESCENDING ARTERY: This vessel is totally occluded in the proximal segment. After the takeoff of the first diagonal branch there is a significant stenosis involving the ostium of the LAD as well as the segment shortly after within the old stent. The flow into the diagonal branch is brisk. LEFT CIRCUMFLEX: This vessel has a 99% stenosis proximally with no significant antegrade flow. RIGHT CORONARY ARTERY: This vessel is totally occluded in mid segment with no significant antegrade flow. Saphenous vein graft to the right coronary artery: The proximal distal anastomotic sites are patent. The flow into the PDA is brisk without any evidence of obstructive coronary artery disease. Saphenous vein graft to the obtuse marginal branch: The proximal and distal anastomotic site is patent with no evidence of significant obstructive disease. MACHUCA to LAD: The distal anastomotic site is patent with brisk flow into the LAD. LEFT VENTRICULOGRAM: Left ventriculogram was not performed. HEMODYNAMICS: There was no gradient across the aortic valve. The left ventricular end-diastolic pressure was 24 mmHg. CONCLUSION: 1. Calcified coronary arteries. 2. Severe triple-vessel disease with severe in-stent restenosis of the left main and proximal LAD. 3. Patent saphenous vein graft to the right coronary artery. 4. Patent saphenous vein graft to the obtuse marginal branch. 5. Patent MACHUCA to LAD. RECOMMENDATION: In view of finding anatomy, I recommend proceeding with angioplasty and stenting of the left main and proximal LAD. The procedure as well as risks and complications were discussed with the patient who is in full understanding and agreement. MMODL / IJN: [id number] /
[2018-07-21 14:48] VITALS: BMI 25.9
--- NOTE | 2018-07-21 16:19 | ECHOF ---
Referral Reason:Dyspnea MEASUREMENTS -------- HEIGHT: 172.7 cm WEIGHT: 77.6 kg BP: 170/70 RVIDd: 3.0 cm (< 3.3) IVSd: 1.5 cm (0.6 - 1.1) LVIDd: 5.0 cm (3.9 - 5.3) LVPWd: 1.4 cm (0.6 - 1.1) IVSs: 2.0 cm LVIDs: 3.3 cm LVPWs: 1.8 cm LA Diam: 3.9 cm (2.7 - 3.8) LAESV Index (A-L): 35.95 ml/m Ao Diam: 3.5 cm (2.0 - 3.7) AV Cusp: 2.0 cm (1.5 - 2.6) MV EXCURSION: 18.872 mm (> 18.000) MV EF SLOPE: 69 mm/s (70 - 150) EPSS: 0.9 cm MV E Nathaniel: 1.20 m/s MV DecT: 160 ms MV A Nathaniel: 0.72 m/s MV E/A Ratio: 1.67 AR PHT: 567 ms RAP: 5.00 mmHg RVSP: 35.66 mmHg FINDINGS -------- Sinus rhythm. This was a technically adequate study. The left ventricular size is normal. There is moderate concentric left ventricular hypertrophy. O verall left ventricular systolic function is mild-moderately impaired with, an EF between 40 - 45 %. Basal inferior LV wall motion is hypokinetic. Basal inferoseptal LV wall motion is hypokinetic. Mid inferior LV wall motion is hypokinetic. The right ventricle is normal in size. LA is moderately dilated 34-39 ml/m2 The right atrium is normal in size. There is mild aortic valve sclerosis. There is [id number]-[id number] aortic regurgitation. Mild mitral annular calcification present. Gbct-hw-hopkuimp mitral regurgitation is present. Mild tricuspid regurgitation present. There is mild pulmonary hypertension. The right ventricular systolic pressure, as measured by Doppler, is 35.66mmHg. Trace/mild (physiologic) pulmonic regurgitation. The aortic root size is normal. Normal inferior vena cava with normal inspiratory collapse consistent with estimated right atrial pre ssure of 5 mmHg. There is no pericardial effusion. CONCLUSIONS -------- 1. Sinus rhythm. 2. This was a technically adequate study. 3. The left ventricular size is normal. 4. There is moderate concentric left ventricular hypertrophy. 5. Overall left ventricular systolic function is mild-moderately impaired with, an EF between 40 - 45 %. 6. Basal inferior LV wall motion is hypokinetic. 7. Basal inferoseptal LV wall motion is hypokinetic. 8. Mid inferior LV wall motion is hypokinetic. 9. LA is moderately dilated 34-39 ml/m2 10. There is mild aortic valve sclerosis. 11. There is cski-rq-tsqroydh aortic regurgitation. 12. Mild mitral annular calcification present. 13. Rdny-wh-siffaxpb mitral regurgitation is present. 14. Mild tricuspid regurgitation present. 15. There is mild pulmonary hypertension. 16. Trace/mild (physiologic) pulmonic regurgitation. 17. The aortic root size is normal. 18. Normal inferior vena cava with normal inspiratory collapse consistent with estimated right atrial pressure of 5 mmHg. 19. There is no pericardial effusion. [employer] PROFESSOR: Nia Cruz RDCS
[2018-07-21 16:42] LABS: Glucose,Whole Blood 137 mg/dL (75-99)
[2018-07-21] MEDS: COLCHICIN-PROBENECID 0.5-500MG 1 EACH TAB PO SCH ×2 (17:31→21:38)
[2018-07-21 21:18] LABS: Glucose,Whole Blood 109 mg/dL (75-99)
[2018-07-21] MEDS: amLODIPine 2.5 MG TAB PO SCH (21:37)
[2018-07-21] MEDS: CLOPIDOGREL 75 MG TAB PO SCH (21:38)
[2018-07-21] MEDS: ATORVASTATIN 80 MG TAB PO SCH (21:38)
[2018-07-22 02:43] LABS: Hemoglobin A1C 7.1 % (4.0-6.0)
[2018-07-22 06:07] LABS: Glucose,Whole Blood 83 mg/dL (75-99)
[2018-07-22] MEDS: INSULIN ASPART 100 UNIT/ML 1 ML 10 ML VIAL SQ SCH ×2 (06:30→12:28)
[2018-07-22 07:27] LABS: Potassium 4.1 mmol/L (3.5-5.1)
[2018-07-22 07:28] LABS: Calcium 9.1 mg/dL (8.4-10.2); Magnesium 1.8 mg/dL (1.6-2.3)
[2018-07-22] MEDS: LISINOPRIL 10 MG TAB PO SCH (07:54)
[2018-07-22] MEDS: ATENOLOL 25 MG TAB PO SCH (07:54)
[2018-07-22] MEDS: glipiZIDE 5 MG TAB PO SCH (07:54)
[2018-07-22] MEDS: COLCHICIN-PROBENECID 0.5-500MG 1 EACH TAB PO SCH (07:54)
[2018-07-22 08:02] VITALS: TEMP 97.6
[2018-07-22] MEDS ORDERED: ISOSORBIDE MONONITRATE ER 30 MG TAB.ER.24H PO SCH (09:00)
[2018-07-22] MEDS ORDERED: ASPIRIN 81 MG PO SCH (09:00)
--- NOTE | 2018-07-22 09:53 | PN ---
PROGRESS NOTE Mr. Jo is a 78-year-old who presented with symptoms of progressive dyspnea consistent with angina pectoris. He underwent cardiac catheterization, was found to have critical stenosis involving the left main and the proximal LAD. He underwent stenting of that vessel. He is doing well this morning. Ambulating without difficulty. Denying any chest pain. No dizziness. No palpitation. No nausea. He continues to be on aspirin once a day, amlodipine 2.5 mg daily, atenolol 25 mg daily, Lipitor 80 mg daily, Plavix 75 mg daily, lisinopril 30 mg daily, isosorbide mononitrate 30 mg daily. PHYSICAL EXAMINATION: Blood pressure 145/70 with a heart rate in the 60s. LUNGS: Clear. Regular rate and rhythm S1, S2. No S3. No rub with a systolic murmur. ABDOMEN: Soft, nontender. EXTREMITIES: No edema. LAB DATA: BUN and creatinine 28 and 1.26, potassium 4.1. IMPRESSION: 1. Status post stenting of the left main. 2. Hypertension. 3. Hyperlipidemia. 4. Chronic kidney disease. RECOMMENDATIONS: From the cardiac standpoint, he should be able to be discharged home today and follow as an outpatient with Dr. Mark. MMFRANCAL / CORYN: [id number] /
[2018-07-22 11:26] LABS: Glucose,Whole Blood 274 mg/dL (75-99)
[2018-07-22 12:56] VITALS: BP 151/67; PULSE 63
--- NOTE | 2018-07-22 17:22 | P.DS ---
Providers Date of admission: 07/20/18 21:21 Attending physician: Merry Santamaria Consults: 07/20/18 21:13 Consult Physician Routine Consulting Provider: Maury Wang Consult Reason/Comments: CHF Do you want consulting provider notified?: Yes 07/21/18 12:54 Consult Physician Routine Consulting Provider: [facility] Consult Reason/Comments: Post Interventional patient Do you want consulting provider notified?: Already Contacted [facility] Course: This is a 78-year-old male patient of Dr. Tim Saez, Dr. Rodriguez, Dr. Mark with past medical history of coronary artery disease status post CABG in 2014 with MACHUCA to LAD, SVG to diagonal, SVG to obtuse marginal and SVG to PDA. He underwent cardiac catheterization in October of this year that showed severe marshall coronary artery disease with significant lesion involving the left main at the bifurcation into LAD and circumflex as well as significant lesion involving the proximal portion of the diagonal and vein graft to the diagonal to be totally occluded with patent MACHUCA to LAD, vein graft to circumflex and vein graft to RCA. He subsequently underwent successful stenting of the distal left main with stenting of the proximal LAD and diagonal branch by Dr. Wang. History of diabetes mellitus type 2, hypertension, hypertensive cardiovascular disease, hyperlipidemia. Patient complains of shortness of breath that has been going on for couple weeks. He denies having any lower extremity edema. He does complain of orthopnea. He also states he is unsteady on his feet. In January he started using a nebulizer and follows with Dr. Rodriguez. He states the nebulizer is not helping him feel better at home. He denies any recent changes to his medications. He denies having any chest pain. No oxygen or CPAP at home. He denies any alcohol use. He denies any known recent echocardiogram. He came into [facility] emergency center for evaluation. He was found to have a proBNP of 3850. EKG was a sinus rhythm with a first-degree AV block without acute ST changes. Troponin was 0.033. Hemoglobin 11.9, INR 1.2, BUN 21 creatinine 1.39. Repeat BUN is 20 and creatinine 1.12. A repeat troponin 0.051. Patient has been seen by cardiology with plan for heart catheterization today. Echocardiogram has been ordered. Patient has been started on aspirin, Plavix and Imdur by cardiology. Patient also has been started on Lasix 40 mg every 12 hours which has been discontinued. He has been diuresing well since admission. Patient had a stent to left main and proximal LAD. Patient is without any complaints. Discharge Diagnosis: 1.Shortness of breath and orthopnea secondary to acute on chronic diastolic heart failure and recurrent ischemia with known coronary artery disease. 2.Coronary artery disease status post PCI left main and proximal LAD with history of coronary artery bypass graft with MACHUCA to LAD saphenous venous graft to the diagonal, obtuse marginal, PDA of the RCA 3. Hypertension and hypertensive cardiovascular disease, poorly controlled. 4. Diabetes mellitus type 2, insulin requiring. 5. Hyperlipidemia. 6. CKD stage III. 7. History of gout continue with colchicine. 8. Left hand carpal tunnel syndrome. 9. Hypomagnesemia status post replacement. 10. Ischemic cardiomyopathy with ejection fraction of 35% in the past with improvement to 55%. 11. 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 Disposition: Home self care CC: Dr. Valentine Impression and plan of care have been directed as dictated by the signing physician. Linnea Herring nurse practitioner acting as scribe for signing physician. Patient Condition at Discharge: Stable Plan - Discharge Summary Discharge Rx Participant: No New Discharge Prescriptions: New Aspirin 81 mg PO DAILY chew Isosorbide Mononitrate ER [Imdur] 30 mg PO DAILY #30 tab.er.24h Nitroglycerin Sl Tabs [Nitrostat] 0.4 mg SUBLINGUAL Q5M PRN #30 tab PRN Reason: Chest Pain Atenolol [Tenormin] 50 mg PO DAILY #30 tab Continue Probenecid/Colchicine [Probenecid-Colchicine Tabs] 1 tab PO BID glipiZIDE [Glucotrol] 5 mg PO QAM amLODIPine [Norvasc] 2.5 mg PO HS Insulin Detemir [Levemir Flextouch] 20 unit SQ DAILY metFORMIN HCL [Glucophage] 1,000 mg PO BID Isosorbide Mononitrate [Ismo] 10 mg PO BID@0900,1600 #60 tab Albuterol Nebulized [Ventolin Nebulized] 2.5 mg INHALATION RT-Q6H PRN PRN Reason: Shortness Of Breath Lisinopril 30 mg PO DAILY Clopidogrel [Plavix] 75 mg PO HS Atorvastatin [Lipitor] 80 mg PO HS Discontinued Atenolol 25 mg PO QAM Discharge Medication List Probenecid/Colchicine [Probenecid-Colchicine Tabs] 1 tab PO BID 11/14/14 [ History] glipiZIDE [Glucotrol] 5 mg PO QAM 12/02/15 [History] Insulin Detemir [Levemir Flextouch] 20 unit SQ DAILY 01/03/18 [History] amLODIPine [Norvasc] 2.5 mg PO HS 01/03/18 [History] metFORMIN HCL [Glucophage] 1,000 mg PO BID 01/03/18 [History] Isosorbide Mononitrate [Ismo] 10 mg PO BID@0900,1600 #60 tab 01/05/18 [Rx] Albuterol Nebulized [Ventolin Nebulized] 2.5 mg INHALATION RT-Q6H PRN 07/20/18 [ History] Atorvastatin [Lipitor] 80 mg PO HS 07/20/18 [History] Clopidogrel [Plavix] 75 mg PO HS 07/20/18 [History] Lisinopril 30 mg PO DAILY 07/20/18 [History] Aspirin 81 mg PO DAILY chew 07/22/18 [Rx] Atenolol [Tenormin] 50 mg PO DAILY #30 tab 07/22/18 [Rx] Isosorbide Mononitrate ER [Imdur] 30 mg PO DAILY #30 tab.er.24h 07/22/18 [Rx] Nitroglycerin Sl Tabs [Nitrostat] 0.4 mg SUBLINGUAL Q5M PRN #30 tab 07/22/18 [Rx ] Follow up Appointment(s)/Referral(s): Vivek Mark MD [STAFF PHYSICIAN] - 1 Week (call office tuesday for appt) Morgan Saez MD [Primary Care Provider] - 1-2 days (call office tuesday for appt) Patient Instructions/Handouts: *[facility] - After Heart Catheterization - Counter Installer Instructions, Left Heart Catheterization (DC) Discharge Disposition: HOME SELF-CARE
== END 2018-07-22 13:21 | disposition home or self-care (01) | DRG 246 ==
LOC: EC 19:21 → 3SCARD 21:21
PROVIDERS: ADMIT Family Medicine; ATTEND Family Medicine
PROC: B2111ZZ Fluoroscopy of Multiple Coronary Arteries using Low Osmolar Contrast (ICD-10-PCS; 2018-07-21)
PROC: 027034Z Dilation of Coronary Artery, One Artery with Drug-eluting Intraluminal Device, Percutaneous Approach (ICD-10-PCS; principal; 2018-07-21 11:30)
PROC: 4A023N7 Measurement of Cardiac Sampling and Pressure, Left Heart, Percutaneous Approach (ICD-10-PCS; 2018-07-21 11:30)
DX: T82.855A Stenosis of coronary artery stent, initial encounter (principal); I50.33 Acute on chronic diastolic (congestive) heart failure; I13.0 Hypertensive heart and chronic kidney disease with heart failure and stage 1 through stage 4 chronic kidney disease, or unspecified chronic kidney disease; J98.11 Atelectasis; E11.22 Type 2 diabetes mellitus with diabetic chronic kidney disease; E78.5 Hyperlipidemia, unspecified; E83.42 Hypomagnesemia; G56.02 Carpal tunnel syndrome, left upper limb; H91.90 Unspecified hearing loss, unspecified ear; I25.10 Atherosclerotic heart disease of native coronary artery without angina pectoris; I25.5 Ischemic cardiomyopathy; I44.0 Atrioventricular block, first degree; N18.3 Chronic kidney disease, stage 3 (moderate); M10.9 Gout, unspecified; M19.90 Unspecified osteoarthritis, unspecified site; R26.81 Unsteadiness on feet; Z79.02 Long term (current) use of antithrombotics/antiplatelets; Z79.4 Long term (current) use of insulin; Z79.899 Other long term (current) drug therapy; Z85.828 Personal history of other malignant neoplasm of skin; Z95.1 Presence of aortocoronary bypass graft; Z95.5 Presence of coronary angioplasty implant and graft; Z82.49 Family history of ischemic heart disease and other diseases of the circulatory system; Y83.1 Surgical operation with implant of artificial internal device as the cause of abnormal reaction of the patient, or of later complication, without mention of misadventure at the time of the procedure
CPT/HCPCS: 36415; 71046; 80048; 80053; 82550; 82553; 83036; 83735; 83880; 84484; 85025; 85610; 85730; 93005; 93306; 93459; 94760; 96365; 96375; 99285; C1874

== ENCOUNTER 2018-09-10 16:48 | Emergency (ER) | payer MEDICARE ==
[2018-09-10 16:54] VITALS: RESP 18; TEMP 97.5
[2018-09-10] MEDS ORDERED: SODIUM CHLORIDE 0.9% 1,000 ML IV STA (17:26)
[2018-09-10] MEDS ORDERED: LORazepam 2 MG/ML INJ IV STA (17:26)
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
[2018-09-10 17:37] LABS: Basophils % (A) 1 %; Eosinophils # (A) 0.1 k/uL (0-0.7); Eosinophils % (A) 1 %; HCT 33.4 % (39.0-53.0); HGB 10.9 gm/dL (13.0-17.5); Lymphocytes # (A) 1.3 k/uL (1.0-4.8); Lymphocytes % (A) 29 %; MCH 29.8 pg (25.0-35.0); MCHC 32.8 g/dL (31.0-37.0); MCV 91.1 fL (80.0-100.0); Mean Platelet Volume 8.3; Monocytes # (A) 0.3 k/uL (0-1.0); Monocytes % (A) 6 %; Neutrophils # (A) 2.8 k/uL (1.3-7.7); Neutrophils % (A) 62 %; Platelet Count 160 k/uL (150-450); RBC 3.66 m/uL (4.30-5.90); RDW 15.4 % (11.5-15.5); WBC 4.5 k/uL (3.8-10.6)
[2018-09-10 17:47] LABS: Albumin 3.7 g/dL (3.5-5.0); Calcium 9.3 mg/dL (8.4-10.2); Potassium 4.4 mmol/L (3.5-5.1); Total Bilirubin 0.8 mg/dL (0.2-1.3); Total Protein 6.6 g/dL (6.3-8.2)
--- NOTE | 2018-09-10 17:50 | CT ---
EXAMINATION TYPE: CT brain wo con DATE OF EXAM: 09/10/2018 HISTORY: Dizziness with fall injuries CT DLP: 1084.4 mGycm. Automated Exposure Control for Dose Reduction was Utilized. TECHNIQUE: CT scan of the head is performed without contrast. COMPARISON: None. FINDINGS: There is no acute intracranial hemorrhage or midline shift identified. There is diffuse v entricular and sulcal prominence consistent with diffuse age-related cerebral atrophy. There is low- attenuation in the periventricular white matter most consistent with chronic small vessel ischemic ch vamshi. The globes are intact and the visualized sinuses are clear. IMPRESSION: 1. No acute intracranial hemorrhage or midline shift. 2. Diffuse age-related cerebral atrophy and chronic small vessel ischemic changes.
[2018-09-10 18:53] VITALS: BP 141/79; PULSE 70
== END 2018-09-10 18:53 | disposition home or self-care (01) ==
LOC: EC 16:48
DX: R42 Dizziness and giddiness (principal); R55 Syncope and collapse; G31.1 Senile degeneration of brain, not elsewhere classified; I25.10 Atherosclerotic heart disease of native coronary artery without angina pectoris; E11.9 Type 2 diabetes mellitus without complications; E78.5 Hyperlipidemia, unspecified; I10 Essential (primary) hypertension; Z79.82 Long term (current) use of aspirin; Z79.02 Long term (current) use of antithrombotics/antiplatelets; Z79.84 Long term (current) use of oral hypoglycemic drugs; Z79.899 Other long term (current) drug therapy; Z95.1 Presence of aortocoronary bypass graft; Z85.828 Personal history of other malignant neoplasm of skin
CPT/HCPCS: 36415; 93005; 80053; 85025; 70450; 99285; 96374; 96361; J2060

== ENCOUNTER → 2018-11-30 | Outpatient (CLI) | payer MEDICARE ==
--- NOTE | 2018-11-30 15:02 | MR ---
MR brain without contrast HISTORY: Dizziness Multiplanar multisequence imaging obtained through the brain. Correlation to CT brain 09/10/2017 There is no restricted diffusion. There is cortical atrophy. There are scattered hyperintensities in the periventricular and subcortical white matter on inversion recovery T2-weighted sequences, some fo luis miguel encephalomalacia present on the left periventricular location which is the largest right matter l esion measuring approximately 8 mm in greatest dimension on axial image 20. There are approximately 2 0 lesions present. There are normal vascular flow voids. No hemorrhage or hydrocephalus. Corpus callo sum, pituitary, cervical medullary junction, cerebellopontine angles are unremarkable. Mucoperiosteal thickening present within the maxillary sinuses, ethmoid air cells. Orbits show symmetric appearance . IMPRESSION: Age-related atrophy and probable chronic small vessel ischemia.
== END ==
LOC: RADMRIMAIN 10:22
PROVIDERS: ATTEND Psychiatry & Neurology Neurology
DX: G31.1 Senile degeneration of brain, not elsewhere classified (principal)
CPT/HCPCS: 70551

== ENCOUNTER 2019-06-04 10:34 | Emergency (ER) | payer MEDICARE ==
[2019-06-04 10:55] VITALS: BP 157/69; PULSE 78; RESP 17; TEMP 97.9
[2019-06-04] MEDS ORDERED: KETOROLAC 30 MG/ML 1 ML VIAL IM STA (11:33)
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
--- NOTE | 2019-06-04 12:23 | XR ---
EXAMINATION TYPE: XR Hip RT and AP Pelvis DATE OF EXAM: 06/04/2019 COMPARISON: None HISTORY: Trauma and pain TECHNIQUE: A single AP view of the pelvis is obtained. Two views of the right hip are obtained. FINDINGS: There is no acute fracture/dislocation evident in the pelvis. The hip and sacroiliac join ts appear symmetric and unremarkable. The overlying soft tissue appears unremarkable. Two views of right hip show no acute fracture or dislocation. No focal lytic or sclerotic lesion see n in the proximal right femur. The overlying soft tissue is unremarkable. Extensive vascular calcif ication is noted. Degenerative disc changes in the lower lumbar spine. IMPRESSION: There is no acute fracture or dislocation in the pelvis or right hip.
--- NOTE | 2019-06-04 12:30 | XR ---
Chest x-ray with left RIBS HISTORY: Trauma and pain 4 views of the left ribs, frontal view of the chest dated, correlation to prior chest x-ray 8. There is persistent elevation of right hemidiaphragm. Patient is post median sternotomy. Heart size i s stable. Patchy density at the right lung base may reflect scarring rather than atelectasis. No pneu mothorax or evident effusion. No evident displaced rib fracture. IMPRESSION: Postop changes. Probable scarring as described. Consider bone scan for increased sensitiv ity for nondisplaced fracture as indicated.
[2019-06-04] MEDS ORDERED: ACET/COD 300 MG/30 MG STARTER PACK 6 TAB BTL PO STA (13:06)
== END 2019-06-04 13:14 | disposition home or self-care (01) ==
LOC: EC 10:34
DX: S30.0XXA Contusion of lower back and pelvis, initial encounter (principal); I25.10 Atherosclerotic heart disease of native coronary artery without angina pectoris; E11.9 Type 2 diabetes mellitus without complications; I10 Essential (primary) hypertension; E78.5 Hyperlipidemia, unspecified; Z79.02 Long term (current) use of antithrombotics/antiplatelets; Z79.4 Long term (current) use of insulin; Z79.82 Long term (current) use of aspirin; Z79.899 Other long term (current) drug therapy; Z95.1 Presence of aortocoronary bypass graft; Z95.5 Presence of coronary angioplasty implant and graft; Z85.828 Personal history of other malignant neoplasm of skin; W01.0XXA Fall on same level from slipping, tripping and stumbling without subsequent striking against object, initial encounter; Y93.01 Activity, walking, marching and hiking
CPT/HCPCS: 71101; 73502; 99283; 96372; J1885

== ENCOUNTER → 2020-04-08 | Outpatient (CLI) | payer OTHER ==
--- NOTE | 2020-04-08 14:27 | EST ---
EXERCISE STRESS AGE: 80 SEX: M HT: 68" WT: 190 lbs. PROTOCOL: Lexiscan Cardiolite STAGE: DURATION OF EXERCISE: HEART RATE REST: 67 BLOOD PRESSURE REST: 149/63 MAXIMUM HEART RATE ACHIEVED: 81 MAXIMUM BLOOD PRESSURE: 156/61 85% MPHR: 100% MPHR: METS: INDICATIONS: Dyspnea on exertion. CLINICAL INFORMATION: Baseline EKG shows sinus rhythm with left bundle branch block. The patient was given Lexiscan as per protocol, did not have chest pain or diagnostic ST-segment depression. CONCLUSION: 1. Inconclusive EKG part of the stress test due to left bundle branch block. 2. Cardiolite portion of the stress test will be reported separately. MMODL / IJN: [id number] /
--- NOTE | 2020-04-08 16:17 | NM ---
EXAMINATION TYPE: NM stress lexiscan cardiolite DATE OF EXAM: 04/08/2020 COMPARISON: NONE HISTORY: Dyspnea on exertion TECHNIQUE: After the intravenous administration of 9.25 mCi Tc 99m Sestamibi - Cardiolite resting SP ECT images acquired 45 minutes post injection. The patient received 0.4mg Lexiscan, 25.3 mCi Tc 99m Sestamibi - Stress images obtained [address] injection FINDINGS: Review of stress and rest SPECT images demonstrates decreased perfusion on stress and rest images avinash ng the anteroseptal, inferolateral left ventricle. There is some decreased uptake at the cardiac ape x on stress as compared to rest images and possibly at the level of the septum towards the base of th e heart. Gated analysis shows normal wall motion with an estimated left ventricular ejection fraction of 45 %. 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 A Yellow level critical message alert has been initiated for Jones Luis Carlosoh via the [employer] System on 04/08/2020 1:04 PM. This message alert has been sent to [facility] via e preferences provided by the clinician for the receipt of Radiology Critical Findings. Message ID [id number].
== END | disposition home or self-care (01) ==
LOC: RADNMMAIN 09:00
PROVIDERS: ATTEND Student in an Organized Health Care Education/Training Program
DX: R94.31 Abnormal electrocardiogram [ECG] [EKG] (principal); I44.7 Left bundle-branch block, unspecified
CPT/HCPCS: 93017; 78452; A9500

== ENCOUNTER → 2020-05-14 | Outpatient (CLI) | payer MEDICARE ==
--- NOTE | 2020-05-14 10:11 | XR ---
EXAMINATION TYPE: XR chest 2V DATE OF EXAM: 05/14/2020 COMPARISON: 06/04/2019 TECHNIQUE: PA and lateral views submitted. HISTORY: MRI clearance FINDINGS: Sternotomy wires are seen. No evidence of an epicardial lead. Hypertrophic and degenerative change of the spine. Tiny granuloma overlying the vertebral column. Persistent right lower lobe infiltrate and tiny effusion or pleural thickening. Heart is enlarged. No overt failure. Arthropathy of the right s houlder. No pneumothorax. Postsurgical changes seen. IMPRESSION: 1. Stable right lower lobe infiltrate and small effusion or pleural thickening. 2. No diagnostic evidence of epicardial lead
== END | disposition home or self-care (01) ==
LOC: RADXRMAIN 09:50
PROVIDERS: ATTEND Physical Medicine & Rehabilitation
DX: Z01.818 Encounter for other preprocedural examination (principal); R91.8 Other nonspecific abnormal finding of lung field; Z95.1 Presence of aortocoronary bypass graft
CPT/HCPCS: 71046